=== PATIENT | female | born 1975 | race Two or more races ===

== ENCOUNTER 2024-12-25 07:36 | Emergency (ER) | payer OTHER ==
[~2024-12-25] VITALS: Ht 157.5 cm; Wt 113.8 kg
--- NOTE | 2024-12-25 07:49 | ED.PDOC ---
History of Present Illness HPI Comments 49-year-old female presents to the ER with prior surgical history of and the chief complaint of chest pain. Patient reports that she woke up this morning, going to the restroom when she started to have left-sided chest pain which is nonradiating, with weakness as well. Patient notes that she does have she stress at home. Denies chills, fever, N/V/D, SOB,. No other associated symptoms, modifiers, recent injuries or sick contacts present at this time. 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 History Family History Family History: Reviewed,noncontributory to illness, Unknown Social History Smoker: Non-Smoker Alcohol: Denies ETOH Use Drugs: Denies Drug Use Lives In: Home Constitutional: reports: weakness; denies: chills, diaphoresis, fatigue, fever, malaise, sweats, others EENTM: denies: blurred vision, double vision, ear bleeding, ear discharge, ear drainage, ear pain, ear ringing, eye pain, eye redness, hearing loss, mouth p ain, mouth swelling, nasal discharge, nose bleeding, nose congestion, nose pain, photophobia, tearing, throat pain, throat swelling, voice changes, others Respiratory: denies: cough, hemoptysis, orthopnea, SOB at rest, shortness of br eath, SOB with excertion, stridor, wheezing, others Cardiovascular: reports: chest pain; denies: dizzy spells, diaphoresis, Dyspnea on exertion, edema, irregular heart beat, left arm pain, lightheadedness, palpitations, PND, syncope, others Gastrointestinal: denies: abdomen distended, abdominal pain, blood streaked redd wels, constipated, diarrhea, dysphagia, difficulty swallowing, hematemesis, melena, nausea, poor appetite, poor fluid intake, rectal bleeding, rectal pain, vomiting, others Genitourinary: denies: abnormal vagina bleeding, burning, dyspareunia, dysuria, flank pain, frequency, hematuria, incontinence, pain, , vagina discharge, urgency, others Neurological: denies: dizziness, fainting, headache, left sided numbness, left sided weakness, numbness, paresthesia, pre-existing deficit, right sided numbness, right sided weakness, seizure, speech problems, tingling, tremors, weakness, others Musculoskeletal: denies: back pain, gout, joint pain, joint swelling, muscle pain, muscle stiffness, neck pain, others Integumetry: denies: bruises, change in color, change in hair/nails, dryness, laceration, lesions, lumps, rash, wounds, others Allergic/Immunocompromised: denies: Difficulty Healing, Frequent Infections, Hives, Itching, others Hematologic/Lymphatic: denies: anemia, blood clots, easy bleeding, easy bruis ing, swollen glands, others Endocrine: denies: excessive hunger, excessive sweating, excessive thirst, exc essive urination, flushing, intolerance to cold, intolerance to heat, unexplained weight gain, unexplained weight loss, others Psychiatric: denies: anxiety, bipolar disorder, depression, hopeless, panic disorder, schizophrenia, sleepless, suicidal, others All Other Systems: Reviewed and Negative Physical Exam General Appearance: Moderate Distress, Normal HEENT: Normal ENT Inspection, Pharynx Normal, TMs Normal Neck: Full Range of Motion, Non-Tender, Normal, Normal Inspection Respiratory: Chest Non-Tender, Lungs Clear, No Accessory Muscle Use, No Respiratory Distress, Normal Breath Sounds Cardiovascular: No Edema, No JVD, No Murmur, No Gallop, Normal Peripheral Pulses, Regular Rate/Rhythm Breast Exam: Deferred Gastrointestinal: No Organomegaly, Non Tender, No Pulsatile Mass, Normal Bowel Sounds, Soft Genitalia: Deferred Pelvic: Deferred Rectal: Deferred Extremities: No calf tenderness, Normal capillary refill, Normal inspection, Normal range of motion, Non-tender, No pedal edema Musculoskeletal : Apperance: Normal Neurologic: Alert, assistant superintendent II-XII nml as Tested, No Motor Deficits, Normal Affect, Normal Mood, No Sensory Deficits Cerebellar Function: Normal Reflexes: Normal Skin: Dry, Normal Color, Warm Peripheral Pulses: 3+ Radial (R), 3+ Radial (L) Lymphatic: No Adenopathy Was a procedure done? Was a procedure done?: No EKG EKG : Pulse Rate (adult): 77 [place]: Normal Cardiac Rhythm: NSR Block: None Hypertrophy: None ST: Normal Differential Dx Considerations may include: Anxiety Musculoskeletal pain X-Ray, Labs, Meds, VS Vital Signs Date Time Temp Pulse Resp B/P (MAP) Pulse Ox O2 Delivery O2 Flow Rate FiO2 12/25/24 08:52 70 12/25/24 07:53 97.5 72 16 140/74 (96) 98 97.5 12/25/24 07:53 72 12/25/24 07:49 77 12/25/24 07:42 77 12/25/24 07:41 97.5 72 16 140/74 (96) 98 97.5 Lab Test 12/25/24 08:49 12/25/24 07:50 Range/Units Troponin I High Sensitivity < 3 L < 3 L </=34 ng/L Patient alert. No sign of distress. Vitals stable. Answering questions. Cardiac marker within normal limits. EKG reviewed does not show any acute changes. Saturation pristine. Heart rate within normal limits. No leg swelling. No shortness a breath. Explained to the patient's age does not have risk factors for coronary artery disease. Possibly stress induced. Educated the patient on stress relief exercises breathing techniques. Was told to follow up with her primary care physician. Was told to come back if there is any problem. Time of 1ST Reevaluation: 08:15 Reevaluation 1ST: Unchanged Time of 2ND Reevaluation: 09:03 Reevaluation 2ND: Improved Patient Education/Counseling: Diagnosis, Treatment, Prognosis Family Education/Counseling: No Family Present Departure 1 Departure Time of Disposition: 09:04 Impression: Primary Impression: Anxiety Additional Impression: Musculoskeletal chest pain Disposition: 01 HOME / SELF CARE / HOMELESS Condition: Good Discharged With: Self Critical Care Note Critical Care Time?: No Stability Stability form required: No Heart Score Heart Score: Heart Score Response (Comments) Value History Slightly Suspicious 0 EKG Normal 0 Age 45-64 1 Risk Factors No known risk factors 0 Troponin Normal limit 0 Total 1 I personally scribed for ANNA CARLOS MD ([email or web address]) on 12/25/24 at 07:49. Electronically submitted by King Casiano ([email or web address]). ANNA CARLOS MD Dec 25, 2024 07:49
[2024-12-25 07:53] VITALS: PULSE 72; TEMP 97.5
--- NOTE | 2024-12-25 08:54 | ECG ---
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
[2024-12-25 10:49] VITALS: BP 141/68; PULSE 69; RESP 13; O2SAT 97
--- NOTE | 2024-12-27 12:56 | ECG ---
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
== END 2024-12-25 10:57 | disposition home or self-care (01) ==
LOC: ER 07:36
DX: F41.9 Anxiety disorder, unspecified (principal); R07.89 Other chest pain
CPT/HCPCS: 36415; 84484; 93005

== ENCOUNTER 2024-12-26 02:48 | Inpatient (IN) | payer OTHER ==
[~2024-12-26] VITALS: Ht 172.7 cm; Wt 116.9 kg
[2024-12-26 03:42] LABS: Basophils # (auto) 0 10 ^3/uL (0-0.2); Eosinophils # (auto) 0.1 10 ^3/uL (0-0.8); Hemoglobin 12.8 g/dL (12.2-16.2); Lymphocytes # (auto) 1.6 10 ^3/uL (0.4-5.4); Monocytes % (auto) 7.6 % (0.0-12.0); Nucleated Red Blood Cells % 0.1 %; Platelet Count (auto) 215 10^3/uL (140-450)
[2024-12-26 03:43] LABS: Chloride 105 mmol/L (98-107); Potassium 3.7 mmol/L (3.5-5.1); Sodium 139 mmol/L (136-145)
[2024-12-26 03:44] LABS: Anion Gap 6 (5-15); Basophils % (auto) 0.5 % (0.0-2.0); Carbon Dioxide 28 mmol/L (20-31); Eosinophils % (auto) 1.7 % (0.0-7.0); Hematocrit 38.3 % (36.0-46.0); Lymphocytes % (auto) 21.6 % (10.0-50.0); Mean Corpuscular Hemoglobin 27.1 pg (28.0-32.0); Mean Corpuscular Hgb Conc. 33.4 g/dL (32.0-36.0); Monocytes # (auto) 0.5 10 ^3/uL (0-1.3); Neutrophils % (auto) 68.6 % (37.0-80.0); Red Blood Cells 4.73 10^6/uL (4.0-5.20); Red Cell Distribution Width 14.1 % (11.8-14.3); White Blood Cell 7.3 10^3/uL (4.4-10.8)
[2024-12-26 03:45] LABS: Calcium 9.2 mg/dL (8.7-10.4)
[2024-12-26 03:49] LABS: BUN/Creatinine Ratio 12.9 (10.0-20.0); Glucose 104 mg/dL (74-106)
--- NOTE | 2024-12-26 04:01 | DVH ---
CHEST RADIOGRAPH Indication: dizziness Technique: Single frontal view of the chest was obtained COMPARISON: None FINDINGS: Lines and Tubes: None Lungs: Clear Pleura: No effusion. No pneumothorax. Cardiomediastinal contours: Unremarkable Bones: Unremarkable IMPRESSION: 1. No acute disease.
--- NOTE | 2024-12-26 04:16 | ED.PDOC ---
History of Present Illness HPI Comments 49 y/o obese F is BIBA for unprovoked and sudden onset of room-spinning dizziness, with nausea, 1 hour prior to arrival, this morning. Patent endorses on symptoms beginning after standing up and turning her head. Vitals were stable and within normal limits. She was given 4mg Zofran ODT, with minimal improvement to nausea symptoms. Patient denies any recent injuries, sick contact, or travel. She denies any chest pain, shortness of breath, fever, chills, vision or speech changes, or further associated symptoms. 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 History Family History Family History: Reviewed,noncontributory to illness, Unknown Social History Smoker: Non-Smoker Alcohol: Denies ETOH Use Drugs: Denies Drug Use Lives In: Home All Other Systems: Reviewed and Negative (Comprehensive systems review obtained and negative except for what is stated in the HPI.) Physical Exam General Appearance: No Apparent Distress, Obese HEENT: Normal ENT Inspection, Pharynx Normal, TMs Normal Neck: Full Range of Motion, Non-Tender, Normal, Normal Inspection Respiratory: Chest Non-Tender, Lungs Clear, No Accessory Muscle Use, No Respiratory Distress, Normal Breath Sounds Cardiovascular: No Edema, No JVD, No Murmur, No Gallop, Normal Peripheral Pulses, Regular Rate/Rhythm Breast Exam: Deferred Gastrointestinal: No Organomegaly, Non Tender, No Pulsatile Mass, Normal Bowel Sounds, Soft Genitalia: Deferred Pelvic: Deferred Rectal: Deferred Extremities: No calf tenderness, Normal capillary refill, Normal inspection, Normal range of motion, Non-tender, No pedal edema Musculoskeletal : Apperance: Normal Neurologic: Alert, field control inspector II-XII nml as Tested, No Motor Deficits, Normal Affect, Normal Mood, No Sensory Deficits Cerebellar Function: Normal Reflexes: Normal Skin: Dry, Normal Color, Warm Lymphatic: No Adenopathy Was a procedure done? Was a procedure done?: No Differential Dx Considerations may include: vertigo, electrolyte imbalance, dehydration, UTI, among others X-Ray, Labs, Meds, VS Vital Signs Date Time Temp Pulse Resp B/P (MAP) Pulse Ox O2 Delivery O2 Flow Rate FiO2 12/26/24 02:57 98.6 79 16 136/85 (102) 99 98.6 Lab Test 12/26/24 03:25 Range/Units White Blood Count 7.3 4.4-10.8 10^3/uL Red Blood Count 4.73 4.0-5.20 10^6/uL Hemoglobin 12.8 12.2-16.2 g/dL Hematocrit 38.3 36.0-46.0 % Mean Corpuscular Volume 81.0 80.0-100.0 fL Mean Corpuscular Hemoglobin 27.1 L 28.0-32.0 pg Mean Corpuscular Hemoglobin Concent 33.4 32.0-36.0 g/dL Red Cell Distribution Width 14.1 11.8-14.3 % Platelet Count 215 140-450 10^3/uL Mean Platelet Volume 9.4 6.9-10.8 fL Neutrophils (%) (Auto) 68.6 37.0-80.0 % Lymphocytes (%) (Auto) 21.6 10.0-50.0 % Monocytes (%) (Auto) 7.6 0.0-12.0 % Eosinophils (%) (Auto) 1.7 0.0-7.0 % Basophils (%) (Auto) 0.5 0.0-2.0 % Neutrophils # (Auto) 5.0 1.6-8.6 10 ^3/uL Lymphocytes # (Auto) 1.6 0.4-5.4 10 ^3/uL Monocytes # (Auto) 0.5 0-1.3 10 ^3/uL Eosinophils # (Auto) 0.1 0-0.8 10 ^3/uL Basophils # (Auto) 0 0-0.2 10 ^3/uL Nucleated Red Blood Cells 0.1 % Sodium Level 139 136-145 mmol/L Potassium Level 3.7 3.5-5.1 mmol/L Chloride Level 105 98-107 mmol/L Carbon Dioxide Level 28 20-31 mmol/L Anion Gap 6 5-15 Blood Urea Nitrogen 9 9-23 mg/dL Creatinine 0.70 0.550-1.02 mg/dL Glomerular Filtration Rate Calc 107 >90 mL/min BUN/Creatinine Ratio 12.9 10.0-20.0 Serum Glucose 104 74-106 mg/dL Calcium Level 9.2 8.7-10.4 mg/dL Troponin I High Sensitivity < 3 L </=34 ng/L [place] [id number] Ph: [phone] DIAGNOSTIC IMAGING Diagnostic Imaging Report : [id number] Signed PATIENT: FRANCISCO GUIDRY ACCT: [id number] UNIT: [id number] : 1975 LOC: ER ROOM / BED: / AGE / SEX: 49 / F ADM STATUS: REG ER SERVICE 4 ORDERING PHYSICIAN: CELIA HENRIQUEZ MD PROCEDURE(s): CXRP - CHEST PORTABLE REASON: dizziness ORDER NUMBER(s): [id number], ACCESSION NUMBER(s): [id number] CHEST RADIOGRAPH Indication: dizziness Technique: Single frontal view of the chest was obtained COMPARISON: None FINDINGS: Lines and Tubes: None Lungs: Clear Pleura: No effusion. No pneumothorax. Cardiomediastinal contours: Unremarkable Bones: Unremarkable IMPRESSION: 1. No acute disease. ATED BY: BURNO AMADOR MD DICTATED DATE/TIME: 12/26/24358 SIGNED BY: BRUNO AMADOR MD SIGNED DATE/TIME: 12/26/24358 CC: Time of 1ST Reevaluation: 03:40 Reevaluation 1ST: Unchanged Patient Education/Counseling: Diagnosis, Treatment Family Education/Counseling: No Family Present Departure 1 Departure Time of Disposition: 04:32 (Patient with a severe dizziness. We will admit bárbara granado for further workup and expert consultation) Impression: Primary Impression: Dizziness Additional Impression: Projectile vomiting with nausea Disposition: ADMITTED INPATIENT Admit to: Med Surg Condition: Serious Critical Care Note Critical Care Time?: No Stability Stability form required: No Heart Score Heart Score: Heart Score Response (Comments) Value History N/A 0 EKG N/A 0 Age N/A 0 Risk Factors N/A 0 Troponin N/A 0 Total 0 I personally scribed for CELIA HENRIQUEZ MD ([email or web address]) on 12/26/24 at 04:15. Electronically submitted by Adrián Boston ([email or web address]). CELIA HENRIQUEZ MD Dec 26, 2024 04:15
--- NOTE | 2024-12-26 04:18 | DVH ---
EXAM: CT HEAD WITHOUT CONTRAST INDICATION: dizziness TECHNIQUE: CT of the head without intravenous contrast. Coronal and sagittal reformatted images are s ubmitted. Radiation Dose : 1. Head: CT Dose: CTDI volume is 55.82 mGy. Dose-length product is 894.89 mGy*cm The dose indicators for CT are the volume Computed Tomography (CT) Dose Index (CTDIvol) and the Dose Length Product (DLP), and are measured in units of mGy and mGy-cm, respectively. These indicators are not patient dose, but values generated from the CT scanner acquisition factors. The report includes radiation exposure data for exposures received during this examination. All CT scans at this medical facility are performed using dose modulation techniques as appropriate to a performed exam including the following: Automated exposure control was utilized; adjustment of the MA and/or KV according to patient size; and use of iterative reconstruction technique. COMPARISON: None FINDINGS: There is no evidence of acute intracranial hemorrhage, extra-axial collection, mass effect, midline s hift, herniation or hydrocephalus. The ventricles, sulci and cisterns are age appropriate. The herrera-white differentiation is intact. The visualized paranasal sinuses and mastoid air cells are clear. No depressed calvarial fracture. The surrounding soft tissues are unremarkable. IMPRESSION: 1. No evidence no evidence of acute intracranial abnormality.
[2024-12-26 04:21] LABS: Blood Urea Nitrogen 9 mg/dL (9-23)
--- NOTE | 2024-12-26 06:30 | ECG ---
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
[2024-12-26 07:21] LABS: Urine Bacteria None Seen /hpf (None Seen)
[2024-12-26 07:31] LABS: Urine Blood Negative /uL (Negative); Urine Clarity Clear (Clear); Urine Color Colorless (Yellow); Urine Protein, UAD Negative (Negative); Urine Specific Gravity 1.007 (1.001-1.035); Urine Squamous Epithelial Cell FEW /hpf (<5); Urine Urobilinogen Normal (Negative); Urine WBC 1 /HPF (0-5); Urine pH 6.5 (5.0-9.0)
[2024-12-26] MEDS ORDERED: DOCUSATE SOD 100 MG CAP PO PRN (08:15)
[2024-12-26] MEDS: SODIUM CHLORIDE 0.9% 1,000 ML IV ONE ×3 (08:15→10:16)
--- NOTE | 2024-12-26 08:20 | DVHHP2 ---
History of Present Illness Reason for Visit: Dizziness History of Present Illness Lubna Cueto is a 49-year-old female with no significant past medical history, who came to the hospital due to dizziness. Patient states she came to the ER yesterday due to palpitations. She was evaluated and sent home. She was still not feeling well and went to bed early yesterday. She states she did not eat or drink much yesterday. She woke up early this morning and the room was spinning. She tried closing her eyes, and letting it pass, but it did not improve. She woke up her and had him bring her to the hospital. Past Surgical History: (x 1) Smoke: No ALCOHOL: none Drugs: None Lives: with Family Domestic Violence: Neg Review of Systems Constitutional: No: Fever, Chills, Sweats, Weakness, Malaise, Other Eyes: No: Pain, Vision change, Conjunctivae inflammation, Eyelid inflammation, Other, Redness ENT: No: Ear pain, Ear discharge, Nose pain, Nose discharge, Nose congestion, Mouth pain, Mouth swelling, Throat pain, Throat swelling, Other Respiratory: No: Cough, Dry, Shortness of breath, SOB with excertion, Wheezing, Hemoptysis, Pleuritic Pain, Sputum, Wheezing, Other Cardiovascular: Palpitations; No: Chest Pain, Orthopnea, Paroxysmal Noc. Dyspnea, Edema, Lt Headedness, Other Gastrointestinal: No: Nausea, Vomiting, Abdominal Pain, Diarrhea, Constipation, Melena, Hematochezia, Other Genitourinary: No Dysuria, No Frequency, No Incontinence, No Hematuria, No Retention, No Other Musculoskeletal: No: other, neck pain, shoulder pain, arm pain, back pain, hand pain, leg pain, foot pain Skin: No: Rash, Lesions, Jaundice, Bruising, Other Neurological: Other (Dizziness); No: Weakness, Numbness, Incoordination, Change in speech, Confusion, Seizures Allergies: Coded Allergies: NO KNOWN ALLERGIES (Unverified , 12/25/24) Medications Current Medications Medications Dose Ordered Sig/Joycelyn Route Start Time Stop Time Status Last Admin Dose Admin Acetaminophen/ Hydrocodone Bitart 1 tab Q4HP PRN PO 12/26/24 08:15 UNV Ondansetron HCl 4 mg Q4HP PRN IV 12/26/24 08:15 UNV Docusate Sodium 100 mg BIDPRN PRN PO 12/26/24 08:15 UNV Acetaminophen 650 mg Q6HP PRN PO 12/26/24 08:15 UNV Meclizine HCl 25 mg Q8HPRN PRN PO 12/26/24 08:15 UNV Exam Vital Signs Vital Signs Date Time Temp Pulse Resp B/P (MAP) Pulse Ox O2 Delivery O2 Flow Rate FiO2 12/26/24 08:14 97.9 70 16 133/80 (97) 96 97.9 12/26/24 06:07 Room Air General Appearance: Alert, Oriented X3, Cooperative, moderate distress HEENT: Atraumatic, PERRLA Respiratory: Clear to auscultation, Normal air movement Cardiovascular: Regular rate, Normal S1, Normal S2, No murmurs Abdominal: Normal bowel sounds, Soft, No tenderness, No hepatospenomegaly Extremities: No clubbing, No cyanosis, No edema, Normal pulses, No tenderness/swelling Skin: No rashes, No breakdown, No significant lesion Neuro: Normal gait, Normal speech, Normal tone, Other (weakness and dizziness) Psych/Mental Status: Mental status NL, Mood NL Labs/Xrays Labs Test 12/26/24 07:05 12/26/24 03:25 Range/Units Urine Color Colorless Yellow Urine Clarity Clear Clear Urine pH 6.5 5.0-9.0 Urine Specific [place] 1.007 1.001-1.035 Urine Protein Negative Negative Urine Ketones Negative Negative Urine Blood Negative Negative /uL Urine Nitrite Negative Negative Urine Bilirubin Negative Negative Urine Urobilinogen Normal Negative mg/dL Urine Leukocyte Esterase Negative Negative /uL Urine RBC <1 0 - 4 /hpf Urine Microscopic WBC 1 0-5 /HPF Urine Squamous Epithelial Cells Few <5 /hpf Urine Bacteria None seen None Seen /hpf Urine Glucose Normal Normal mg/dL White Blood Count 7.3 4.4-10.8 10^3/uL Red Blood Count 4.73 4.0-5.20 10^6/uL Hemoglobin 12.8 12.2-16.2 g/dL Hematocrit 38.3 36.0-46.0 % Mean Corpuscular Volume 81.0 80.0-100.0 fL Mean Corpuscular Hemoglobin 27.1 L 28.0-32.0 pg Mean Corpuscular Hemoglobin Concent 33.4 32.0-36.0 g/dL Red Cell Distribution Width 14.1 11.8-14.3 % Platelet Count 215 140-450 10^3/uL Mean Platelet Volume 9.4 6.9-10.8 fL Neutrophils (%) (Auto) 68.6 37.0-80.0 % Lymphocytes (%) (Auto) 21.6 10.0-50.0 % Monocytes (%) (Auto) 7.6 0.0-12.0 % Eosinophils (%) (Auto) 1.7 0.0-7.0 % Basophils (%) (Auto) 0.5 0.0-2.0 % Neutrophils # (Auto) 5.0 1.6-8.6 10 ^3/uL Lymphocytes # (Auto) 1.6 0.4-5.4 10 ^3/uL Monocytes # (Auto) 0.5 0-1.3 10 ^3/uL Eosinophils # (Auto) 0.1 0-0.8 10 ^3/uL Basophils # (Auto) 0 0-0.2 10 ^3/uL Nucleated Red Blood Cells 0.1 % Sodium Level 139 136-145 mmol/L Potassium Level 3.7 3.5-5.1 mmol/L Chloride Level 105 98-107 mmol/L Carbon Dioxide Level 28 20-31 mmol/L Anion Gap 6 5-15 Blood Urea Nitrogen 9 9-23 mg/dL Creatinine 0.70 0.550-1.02 mg/dL Glomerular Filtration Rate Calc 107 >90 mL/min BUN/Creatinine Ratio 12.9 10.0-20.0 Serum Glucose 104 74-106 mg/dL Calcium Level 9.2 8.7-10.4 mg/dL Troponin I High Sensitivity < 3 L </=34 ng/L EXAM: CT HEAD WITHOUT CONTRAST FINDINGS: There is no evidence of acute intracranial hemorrhage, extra-axial collection, m ass effect, midline shift, herniation or hydrocephalus. The ventricles, sulci and cisterns are age appropriate. The herrera-white differentiation is intact. The visualized paranasal sinuses and mastoid air cells are clear. No depressed calvarial fracture. The surrounding soft tissues are unremarkable. IMPRESSION: 1. No evidence no evidence of acute intracranial abnormality. CHEST RADIOGRAPH FINDINGS: Lines and Tubes: None Lungs: Clear Pleura: No effusion. No pneumothorax. Cardiomediastinal contours: Unremarkable Bones: Unremarkable IMPRESSION: 1. No acute disease. Assessment/Plan Assessment/Plan Assessment: Autonomic dysfunction, Dehydration, Palpitations, Possible vertigo, Plan: Admit to Med-Surg, IV hydration, Meclizine, Neuro checks, Plan discussed with: Patient, Spouse My Orders Orders - KAT LITTLE Procedure Category Date Status Time Admit ADMIT 12/26/24 Transmitted 08:13 Code Status CODE 12/26/24 Transmitted 08:13 Hydrocodone-Acet PHA 12/26/24 Logged 5/325mg Tab ([place] 08:15 Ondansetron Hcl PHA 12/26/24 Logged (Zofran) 08:15 Docusate Sodium PHA 12/26/24 Logged Capsule ([place] 08:15 Complete Blood Count LAB 12/27/24 Verified 04:00 Comprehensive LAB 12/27/24 Verified Metabolic Panel 04:00 Condition: Serious SHELLI 12/26/24 In Process 08:13 Acetaminophen Tablet PHA 12/26/24 Logged (Tylenol Tablet) 08:15 Meclizine Tablet PHA 12/26/24 Logged (Antivert Tablet) 08:15 Sodium Chloride 0.9% PHA 12/26/24 Logged 08:15 Sodium Chloride 0.9% PHA 12/26/24 Logged 08:15 Regular Diet DIET 12/26/24 Transmitted Breakfast Date of Service: Dec 26, 2024 Billing Provider: KAT LITTLE Common Visit Codes: [id number] INP/OBS CARE (MOD) KAT LITTLE Dec 26, 2024 08:19
[2024-12-26] MEDS: ONDANSETRON HCL 4 MG/2 ML VIAL IV ONE (10:14)
[2024-12-26] MEDS: MECLIZINE HCL 25 MG TAB PO ONE (10:15)
--- NOTE | 2024-12-26 12:44 | DVHPN2 ---
Subjective Patient continues to have dizziness. Patient is in wheelchair in avoiding movements. Small movements are causing nausea and p.o. intolerance. Reviewed: H&P Changes from previous H/P or p: No Changes General: Per HPI Objective Vitals Vital Signs Date Time Temp Pulse Resp B/P (MAP) Pulse Ox O2 Delivery O2 Flow Rate FiO2 12/26/24 12:37 Room Air* 0 21 12/26/24 12:34 98.0 78 16 147/86 (106) 98 98.0 Exam GEN: Healthy appearing, well-developed, NAD. HEENT: NC/AT; MMM. CV: RRR, no m/r/g. LUNGS: CTAB, no w/r/c. ABD: Soft, NT/ND, NBS, no masses or organomegaly. EXT: skin Warm, well perfused. no rashes. No clubbing, cyanosis, or edema. NEURO: Ambulating with no limitations. No focal deficits. No nystagmus found, hearing intact cranial nerves 2-12 intact. Medications Current Medications Medications Dose Ordered Sig/Joycelyn Route Start Time Stop Time Status Last Admin Dose Admin Acetaminophen/ Hydrocodone Bitart 1 tab Q4HP PRN PO 12/26/24 08:15 Ondansetron HCl 4 mg Q4HP PRN IV 12/26/24 08:15 Docusate Sodium 100 mg BIDPRN PRN PO 12/26/24 08:15 Acetaminophen 650 mg Q6HP PRN PO 12/26/24 08:15 Meclizine HCl 25 mg Q8HPRN PRN PO 12/26/24 08:15 Laboratory Results Laboratory Tests 12/26/24 03:25 Chemistry Test 12/26/24 03:25 Calcium Level 9.2 mg/dL (8.7-10.4) Urinalysis Test 12/26/24 07:05 Urine Color Colorless (Yellow) Urine Clarity Clear (Clear) Urine pH 6.5 (5.0-9.0) Urine Specific [place] 1.007 (1.001-1.035) Urine Protein Negative (Negative) Urine Ketones Negative (Negative) Urine Blood Negative /uL (Negative) Urine Nitrite Negative (Negative) Urine Bilirubin Negative (Negative) Urine Urobilinogen Normal mg/dL (Negative) Urine Leukocyte Esterase Negative /uL (Negative) Urine RBC <1 /hpf (0 - 4) Urine Microscopic WBC 1 /HPF (0-5) Urine Squamous Epithelial Cells Few /hpf (<5) Urine Bacteria None seen /hpf (None Seen) Urine Glucose Normal mg/dL (Normal) Labs and/or images reviewed: Labs reviewed by me, Image(s) reviewed by me Assessment/Plan Assessment/Plan 12/26 49-year-old female, no past medical history, coming with nausea vomiting dizziness. Possible gastroenteritis, still minimally tolerating p.o.. We will have a test [place]-Hallpike as soon as patient gets a bed. No abdominal pain or tenderness. Patient is intravascular volume depleted Intractable nausea and vomiting Intractable dizziness palpitations rule-out arrhythmia Gastroenteritis, patient's etiology likely stroke, rule out - continue IV fluids - CT head normal. no acute findings. - iv antibiotics - for possible GE - Continue meclizine p.r.n. - antiemetics - zofran - diet CLD - neurochecks - vaibhav hallpike test. diet clear liquid diet DVT prophylaxis-Lovenox score, ambulating GI prophylaxis tolerating diet, altered minimally Tele start Full code Plan discussed with: Patient Date of Service: Dec 26, 2024 Billing Provider: EKTA BLUE MD Common Visit Codes: [id number] INP/OBS CARE(HIGH) EKTA BLUE MD Dec 26, 2024 12:44
[2024-12-26] MEDS: ACETAMINOPHEN 325 MG TAB PO PRN (14:24)
[2024-12-26] MEDS: MECLIZINE HCL 25 MG TAB PO PRN (14:24)
[2024-12-26] MEDS: ONDANSETRON HCL 4 MG/2 ML VIAL IV PRN (14:24)
[2024-12-26] MEDS: ceFAZolin 1GM/50ML 50 ML IV SCH (18:00)
[2024-12-26 20:30] VITALS: PULSE 69; RESP 15; O2SAT 97
[2024-12-26 20:50] VITALS: BP 121/68; PULSE 78; RESP 17; TEMP 97.7; O2SAT 97
[2024-12-26 21:15] VITALS: PULSE 78; RESP 17; O2SAT 97
[2024-12-27] VITALS (13 sets, daily range): BP systolic 101–131; BP diastolic 63–88; PULSE 67–155; RESP 17–19; TEMP 97.2–98.1; O2SAT 92–97
[2024-12-27] MEDS: MECLIZINE HCL 25 MG TAB PO PRN (03:06)
[2024-12-27 05:56] LABS: Basophils # (auto) 0 10 ^3/uL (0-0.2); Basophils % (auto) 0.6 % (0.0-2.0); Eosinophils # (auto) 0.1 10 ^3/uL (0-0.8); Eosinophils % (auto) 2.1 % (0.0-7.0); Hematocrit 35.5 % (36.0-46.0); Hemoglobin 11.9 g/dL (12.2-16.2); Lymphocytes # (auto) 1.6 10 ^3/uL (0.4-5.4); Lymphocytes % (auto) 30.9 % (10.0-50.0); Mean Corpuscular Hemoglobin 27.4 pg (28.0-32.0); Mean Corpuscular Hgb Conc. 33.5 g/dL (32.0-36.0); Mean Corpuscular Volume 81.7 fL (80.0-100.0); Monocytes # (auto) 0.5 10 ^3/uL (0-1.3); Monocytes % (auto) 8.8 % (0.0-12.0); Neutrophils % (auto) 57.6 % (37.0-80.0); Nucleated Red Blood Cells % 0.1 %; Platelet Count (auto) 205 10^3/uL (140-450); Red Blood Cells 4.35 10^6/uL (4.0-5.20); Red Cell Distribution Width 14.3 % (11.8-14.3); White Blood Cell 5.2 10^3/uL (4.4-10.8)
[2024-12-27 06:15] LABS: Alanine Aminotransferase 18 U/L (7-40); Alkaline Phosphatase 86 U/L (46-116); Anion Gap 9 (5-15); BUN/Creatinine Ratio 15.5 (10.0-20.0); Blood Urea Nitrogen 11 mg/dL (9-23); Calcium 9.1 mg/dL (8.7-10.4); Carbon Dioxide 25 mmol/L (20-31); Glucose 97 mg/dL (74-106); Potassium 3.9 mmol/L (3.5-5.1); Sodium 141 mmol/L (136-145); Total Protein 7.2 g/dL (5.7-8.2)
[2024-12-27 06:16] LABS: Aspartate Aminotransferase 17 U/L (13-40)
[2024-12-27 06:19] LABS: Bilirubin, Total 0.3 mg/dL (0.2-1.0); Chloride 107 mmol/L (98-107)
[2024-12-27] MEDS: METOPROLOL SUCCINATE XL 50 MG TAB PO ONE (12:52)
[2024-12-27] MEDS: LACTATED RINGER'S 1,000 ML IV SCH (14:00)
[2024-12-27] MEDS ORDERED: ENOXAPARIN SOD 120 MG/0.8 ML SYRINGE SC SCH (14:08)
--- NOTE | 2024-12-27 14:32 | DVHPN2 ---
Subjective Patient continues to have dizziness. Patient is inbed in avoiding movements. Small movements are causing nausea and p.o. intolerance. Reviewed: H&P Changes from previous H/P or p: No Changes General: Per HPI Eyes: No Pain, No Vision change, No Conjunctivae inflammation, No Eyelid inflammation, No Other, No Redness ENT: No Ear pain, No Ear discharge, No Nose pain, No Nose discharge, No Nose congestion, No Mouth pain, No Mouth swelling, No Throat pain, No Throat swelling, No Other Cardiovascular: No Chest Pain; Palpitations; No Orthopnea, No Paroxysmal Noc. Dyspnea, No Edema, No Lt Headedness, No Other Respiratory: No Cough, No Dry, No Shortness of breath, No SOB with excertion, No Wheezing, No Hemoptysis, No Pleuritic Pain, No Sputum, No Other Gastrointestinal: No Nausea, No Vomiting, No Abdominal Pain, No Diarrhea, No Constipation, No Melena, No Hematochezia, No Other Genitourinary: No Dysuria, No Frequency, No Incontinence, No Hematuria, No Retention, No Other Musculoskeletal: No other, No neck pain, No shoulder pain, No arm pain, No back pain, No hand pain, No leg pain, No foot pain Skin: No Rash, No Lesions, No Jaundice, No Bruising, No Other Objective Vitals Vital Signs Date Time Temp Pulse Resp B/P (MAP) Pulse Ox O2 Delivery O2 Flow Rate FiO2 12/27/24 12:52 80 118/71 12/27/24 08:49 97.4 19 92 97.4 12/27/24 08:00 Room Air* 0 21 Intake/Output Intake and Output 12/27/24 07:00 Intake Total 1018 ml Balance 1018 ml Intake Oral 1018 ml # Voids 3 # Bowel Movements 1 Exam GEN: Healthy appearing, well-developed, NAD. HEENT: NC/AT; MMM. CV: Irregularly irregular , no murmurs, normal rate LUNGS: CTAB, no w/r/c. ABD: Soft, NT/ND, NBS, no masses or organomegaly. EXT: skin Warm, well perfused. no rashes. No clubbing, cyanosis, or edema. NEURO: Ambulating with no limitations. No focal deficits. No nystagmus found, hearing intact cranial nerves 2-12 intact. Azeb-Hallpike positive on the right Medications Current Medications Medications Dose Ordered Sig/Joycelyn Route Start Time Stop Time Status Last Admin Dose Admin Acetaminophen/ Hydrocodone Bitart 1 tab Q4HP PRN PO 12/26/24 08:15 Ondansetron HCl 4 mg Q4HP PRN IV 12/26/24 08:15 12/26/24 14:24 4 MG Docusate Sodium 100 mg BIDPRN PRN PO 12/26/24 08:15 Acetaminophen 650 mg Q6HP PRN PO 12/26/24 08:15 12/26/24 14:24 650 MG Meclizine HCl 25 mg Q6HPRN PRN PO 12/26/24 14:15 12/27/24 09:09 25 MG Cefazolin Sodium 50 ml @ 100 mls/hr Q8H IV 12/26/24 18:00 Metoprolol Succinate 25 mg DAILY PO 12/28/24 10:00 Enoxaparin Sodium 120 mg Q12HR SC 12/27/24 14:08 Lactated Ringer's 1,000 ml @ 75 mls/hr [id number] IV 12/27/24 13:45 12/28/24 13:44 Laboratory Results Laboratory Tests 12/27/24 05:05 Chemistry Test 12/27/24 05:05 Albumin 4.0 g/dL (3.2-4.8) Calcium Level 9.1 mg/dL (8.7-10.4) Total Protein 7.2 g/dL (5.7-8.2) LFT Test 12/27/24 05:05 Alanine Aminotransferase (ALT) 18 U/L (7-40) Alkaline Phosphatase 86 U/L (46-116) Aspartate Amino Transferase (AST) 17 U/L (13-40) Total Bilirubin 0.3 mg/dL (0.2-1.0) Urinalysis Test 12/26/24 07:05 Urine Color Colorless (Yellow) Urine Clarity Clear (Clear) Urine pH 6.5 (5.0-9.0) Urine Specific [place] 1.007 (1.001-1.035) Urine Protein Negative (Negative) Urine Ketones Negative (Negative) Urine Blood Negative /uL (Negative) Urine Nitrite Negative (Negative) Urine Bilirubin Negative (Negative) Urine Urobilinogen Normal mg/dL (Negative) Urine Leukocyte Esterase Negative /uL (Negative) Urine RBC <1 /hpf (0 - 4) Urine Microscopic WBC 1 /HPF (0-5) Urine Squamous Epithelial Cells Few /hpf (<5) Urine Bacteria None seen /hpf (None Seen) Urine Glucose Normal mg/dL (Normal) Labs and/or images reviewed: Labs reviewed by me, Image(s) reviewed by me Assessment/Plan Assessment/Plan 12/26 49-year-old female, no past medical history, coming with nausea vomiting dizziness. Possible gastroenteritis, still minimally tolerating p.o.. We will have a test Azeb-Hallpike as soon as patient gets a bed. No abdominal pain or tenderness. Patient is intravascular volume depleted 12/27- today noting [place]-Hallpike positive on the right. Patient has BPPV. She was having palpitations yesterday and was put on tele. Today we find that she is on proximal AFib. We will get workup for proximal AFib, start rate control, start anticoagulation. CHADS-VASc is 1. We will get cardiology eval. May not need anticoagulation. AFib, paroxysmal, RVR palpitations, due to above BPPV Intractable nausea and vomiting due to above Intractable dizziness due to above Gastroenteritis, infectious etiology, likely stroke, ruled out - continue IV fluids - CT head normal. no acute findings. - iv antibiotics - for possible GE - Continue meclizine p.r.n. - antiemetics - zofran - diet regular - neurochecks - azeb hallpike test. Positive on right - TSH, echo, Cardiology consult, workup for AFib. - metoprolol XL 25mg and full dose lovenox Diet regular DVT prophylaxis- full dose lovenox GI prophylaxis tolerating diet, altered minimally Tele start Full code Plan discussed with: Patient My Orders Orders - EKTA BLUE MD Procedure Category Date Status Time Cefazolin 1gm/50ml PHA 12/26/24 In Process (Ancef) 18:00 Transfer Orders XFER 12/26/24 Transmitted 15:09 Metoprolol Xl PHA 12/28/24 In Process Succinate (Toprol Xl) 10:00 Thyroid Stimulating LAB 12/27/24 Logged Hormone 13:34 Drug Screen LAB 12/27/24 Logged 13:34 Free T4 (Free LAB 12/27/24 Logged Thyroxine) 13:34 Lactated Ringer's PHA 12/27/24 In Process 13:45 Echo 2d Mode Cardiac US 12/27/24 Logged DOP 13:34 * Cardiology Consult CONS 12/27/24 Transmitted 13:54 Enoxaparin Sodium PHA 12/27/24 In Process (Lovenox) 14:08 Date of Service: Dec 27, 2024 Billing Provider: EKTA BLUE MD Common Visit Codes: [id number] INP/OBS CARE(HIGH) EKTA BLUE MD Dec 27, 2024 14:32
--- NOTE | 2024-12-27 15:21 | DVHCONRES ---
Date Seen: Dec 27, 2024 Resident Creating Document: BERNIE BROTHERS RESIDENT Referring Physician Dr. Corona Reason for Consultation New AFib, paroxysmal History of Present Illness Patient is a 49-year-old female with no past medical history who comes in due to vertigo. According to the patient, on 12/25/2024 she came to the ER with chief complaint of palpitations and feeling jittery, EKG and workup was performed and patient was sent home and told she has anxiety. Per patient, she woke up in the early hours of 12/26/2024 feeling like the room was spinning, spinning worsened on slight head movement. Patient denies having similar symptoms in the past. On review of systems patient is complaining of nausea and palpitations. Telemetry strips were reviewed from 03/24 3:00 a.m. and 8:43 a.m. on 12/27/2024 and patient was noted to have PACs but no atrial fibrillation. At the time of me speaking with the patient, patient noted she was feeling "fluttering" again and a 12 lead EKG was performed that showed multiple atrial premature complexes, but positive P wave and no atrial fibrillation. Past Medical History Denies Past Surgical History section Family History: Patient reports no known family medical history. 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 Allergies: Coded Allergies: NO KNOWN ALLERGIES (Unverified , 12/25/24) Home Meds No Active Prescriptions or Reported Meds Current Medications Current Medications Medications (Trade) Dose Ordered Sig/Joycelyn Route PRN Reason Start Time Stop Time Status Last Admin Cefazolin Sodium 50 ml @ 100 mls/hr Q8H IV 12/26/24 18:00 Metoprolol Succinate (Toprol Xl) 25 mg DAILY PO 12/28/24 10:00 Enoxaparin Sodium (Lovenox) 120 mg Q12HR SC 12/27/24 14:08 Lactated Ringer's 1,000 ml @ 75 mls/hr [id number] IV 12/27/24 13:45 12/28/24 13:44 Review of Systems Patient seen and examined at bedside. Patient is alert and oriented to time, place person and responding to all questions. Eyes: No Pain, No Vision change, No Conjunctivae inflammation, No Eyelid inflammation, No Other, No Redness ENT: No Ear pain, No Ear discharge, No Nose pain, No Nose discharge, No Nose congestion, No Mouth pain, No Mouth swelling, No Throat pain, No Throat swelling, No Other Cardiovascular: No Chest Pain, Palpitations, No Orthopnea, No Paroxysmal No Dyspnea, No Edema, No Lt Headedness, No Other Respiratory: No Cough, No Dry, No Shortness of breath, No SOB with exertion, No Wheezing, No Hemoptysis, No Pleuritic Pain, No Sputum, No Other Gastrointestinal: Nausea, No Vomiting, No Abdominal Pain, No Diarrhea, No Constipation, No Melena, No Hematochezia, No Other Genitourinary: No Dysuria, No Frequency, No Incontinence, No Hematuria, No Retention, No Other Musculoskeletal: No other, No neck pain, No shoulder pain, No arm pain, No back pain, No hand pain, No leg pain, No foot pain Skin: No Rash, No Lesions, No Jaundice, No Bruising, No Other Psych: Denies any anxiety or stress, however, noted to have a sad affect and teary due to cousins passing 2 months ago Vital Signs Vital Signs Date Time Temp Pulse Resp B/P (MAP) Pulse Ox O2 Delivery O2 Flow Rate FiO2 12/27/24 13:00 97.8 80 19 118/71 (87) 95 97.8 12/27/24 08:00 Room Air* 0 21 Physical Exam General Appearance: Cooperative. Well developed. Well nourished. NAD Head Exam: Normal inspection Neck Exam: Normal inspection. Non-tender. Normal alignment Pulmonary/Respiratory: Chest non-tender. Clear bilateral breath sounds, no crackles, no wheezing. Cardiovascular/Chest: Regular rate and rhythm. No murmurs. No JVD. Peripheral Pulses: 2+ Radial (R). 2+ Radial (L). 2+ Pedal (R). 2+ Pedal (L) Abdominal Exam: Normal bowel sounds. Soft. normal abdomen, no visible veins, Nontender. No hepatospenomegaly. No masses Ankle Exam: 2+ ankle edema Lower extremities: Negative lower extremity edema Neuro/Mental Status: A&O x4. Coherent. Thoughts/Psych: Normal thought pattern. Appropriate mood and affect. Good judgement and insight Skin Exam: Normal inspection. Normal color. Warm. Dry Labs/Diagnostic Data Labs Test 12/27/24 05:05 12/26/24 07:05 12/26/24 03:25 Range/Units White Blood Count 5.2 # 4.4-10.8 10^3/uL Red Blood Count 4.35 4.0-5.20 10^6/uL Hemoglobin 11.9 L 12.2-16.2 g/dL Hematocrit 35.5 L 36.0-46.0 % Mean Corpuscular Volume 81.7 80.0-100.0 fL Mean Corpuscular Hemoglobin 27.4 L 28.0-32.0 pg Mean Corpuscular Hemoglobin Concent 33.5 32.0-36.0 g/dL Red Cell Distribution Width 14.3 11.8-14.3 % Platelet Count 205 140-450 10^3/uL Mean Platelet Volume 9.5 6.9-10.8 fL Neutrophils (%) (Auto) 57.6 37.0-80.0 % Lymphocytes (%) (Auto) 30.9 10.0-50.0 % Monocytes (%) (Auto) 8.8 0.0-12.0 % Eosinophils (%) (Auto) 2.1 0.0-7.0 % Basophils (%) (Auto) 0.6 0.0-2.0 % Neutrophils # (Auto) 3.0 1.6-8.6 10 ^3/uL Lymphocytes # (Auto) 1.6 0.4-5.4 10 ^3/uL Monocytes # (Auto) 0.5 0-1.3 10 ^3/uL Eosinophils # (Auto) 0.1 0-0.8 10 ^3/uL Basophils # (Auto) 0 0-0.2 10 ^3/uL Nucleated Red Blood Cells 0.1 % Sodium Level 141 136-145 mmol/L Potassium Level 3.9 3.5-5.1 mmol/L Chloride Level 107 98-107 mmol/L Carbon Dioxide Level 25 20-31 mmol/L Anion Gap 9 5-15 Blood Urea Nitrogen 11 9-23 mg/dL Creatinine 0.71 0.550-1.02 mg/dL Glomerular Filtration Rate Calc 105 >90 mL/min BUN/Creatinine Ratio 15.5 10.0-20.0 Serum Glucose 97 74-106 mg/dL Calcium Level 9.1 8.7-10.4 mg/dL Total Bilirubin 0.3 0.2-1.0 mg/dL Aspartate Amino Transferase (AST) 17 13-40 U/L Alanine Aminotransferase (ALT) 18 7-40 U/L Alkaline Phosphatase 86 46-116 U/L Total Protein 7.2 5.7-8.2 g/dL Albumin 4.0 3.2-4.8 g/dL Urine Color Colorless Yellow Urine Clarity Clear Clear Urine pH 6.5 5.0-9.0 Urine Specific [place] 1.007 1.001-1.035 Urine Protein Negative Negative Urine Ketones Negative Negative Urine Blood Negative Negative /uL Urine Nitrite Negative Negative Urine Bilirubin Negative Negative Urine Urobilinogen Normal Negative mg/dL Urine Leukocyte Esterase Negative Negative /uL Urine RBC <1 0 - 4 /hpf Urine Microscopic WBC 1 0-5 /HPF Urine Squamous Epithelial Cells Few <5 /hpf Urine Bacteria None seen None Seen /hpf Urine Glucose Normal Normal mg/dL Troponin I High Sensitivity < 3 L </=34 ng/L Assessment Multiple premature atrial complexes Vertigo possibly BPPV Probable complicated grief Plan/Recommendation Pending echocardiogram, TSH, UDS, serum magnesium Magnesium rider IV once Continue beta-asa Stopped therapeutic Lovenox Rest of the management as per hospitalist Thank you so much for the opportunity to consult on your patient. In case of any questions or concerns please feel free to reach out. Plan discussed with Dr. Reddy, patient and patient's boyfriend at bedside Plan discussed with: Patient, Other (Boyfriend at bedside, RN) Visit Coding Cardiology RES Date of Service: Dec 27, 2024 Billing Provider: BERNIE BROTHERS RESIDENT Cardiology Common Codes: [id number] INP/OBS CARE (High) BERNIE BROTHERS Dec 27, 2024 15:21
[2024-12-27] MEDS: MAGNESIUM SULFATE 1GM/100ML 100 ML IV ONE (17:39)
--- NOTE | 2024-12-27 17:41 | DVHSR ---
APPROVED REPORT EXAM: LIMITED Two-dimensional and M-mode echocardiogram with Doppler and color Doppler. Blood Pressure: 118/71 mmHg INDICATION Atrial Fibrillation New Paroxysmal RISK FACTORS Obesity: Height: 5' 8", Weight: 253 DIMENSIONS LVDd4.5 (3.8-5.7cm)LA (2D)4.0 (1.9-4.0cm)Aortic Root3.3 (2.0-3.7cm) LVDs3.2 (2.5-4.0cm)LA (MM) (1.9-4.0cm)Aortic Cusp Exc1.7 (1.5-2.0cm) EF (%) 55.0 (55-70%)Rt. Atrium (1.9-4.0cm)Asc. Aorta cm IVSd1.0 (0.7-1.1cm)RV (D) (1.8-2.4cm) PWd1.1 (0.7-1.1cm) Mitral Valve MitralMitral Stenosis E wave1.20m/sMV Mean GR.mmHg A wave1.40m/sMV Peak GR.mmHg E/A ratio0.92D MVAcm2 Aortic Valve Aortic ValveAortic Stenosis V10.70m/Jayce Mean GR.4mmHg V21.40m/Jayce Peak GR.8mmHg LVOT Diameter2.2 (1.8-2.4cm)Doppler AVA1.90cm2 Pulmonic Valve V21.10m/s Other Information Quality : Technically LimitedRhythm : Atrial Fibrillation Technically limited study due to patient position. Conclusion Sinus rhythm. Left atrial enlargement. Mild aortic root enlargement. Mild dilation of the sinuses of Valsalva. Valves are normal. EF of 55% with normal RV function. Dopplers unremarkable. No pericardial effusion masses or vegetations.
[2024-12-27 21:26] LABS: Amphetamine Screen, Urine Neg (NEGATIVE); Barbiturate Scree,Urine Neg (NEGATIVE); Benzodiazephine Screen, Urine Neg (NEGATIVE); Cannabinoid Screen, Urine Neg (NEGATIVE); Cocaine Screen, Urine Neg (NEGATIVE); Opiate Scree,Urine Neg (NEGATIVE); Phencyclidine Screen, Urine Neg (NEGATIVE)
[2024-12-27] MEDS: HYDROcodone-ACET 5/325MG TAB PO PRN (23:30)
[2024-12-28] VITALS (8 sets, daily range): BP systolic 113–136; BP diastolic 60–75; PULSE 62–76; RESP 17–20; TEMP 96.1–98.2; O2SAT 94–99
[2024-12-28] MEDS: METOPROLOL SUCCINATE XL 50 MG TAB PO SCH (09:20)
[2024-12-28] MEDS: ENOXAPARIN SOD 40 MG/0.4 ML SYRINGE SC SCH (10:00)
--- NOTE | 2024-12-28 11:07 | ECG ---
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
--- NOTE | 2024-12-28 12:40 | DVHPNRES ---
Progress Note Date Seen: Dec 28, 2024 Resident Creating Document: BERNIE BROTHERS RESIDENT Medical Necessity Reason Pt with a Central, PICC or Fol: No Subjective Review of Systems Patient seen and examined at bedside. Patient is alert and oriented to time, place, person and responding to all questions. Patient was noted to have a brief episode of heart rate in the 170s, tele monitor was reviewed and patient was not noted to be in AFib at the time. An EKG was performed shortly afterwards, which showed normal sinus rhythm with a heart rate of 70. Objective vital signs Vital Sign Date Time Temp Pulse Resp B/P (MAP) Pulse Ox O2 Delivery O2 Flow Rate FiO2 12/28/24 12:26 96.6 63 19 136/75 (95) 95 96.6 12/28/24 08:00 Room Air* 0 21 Total Intake and Output 12/27/24 12/27/24 12/28/24 15:00 23:00 07:00 Intake Total 980 ml 475 ml Balance 980 ml 475 ml medications Current Medications Medications Dose Ordered Sig/Joycelyn Route Start Time Stop Time Status Last Admin Dose Admin Acetaminophen/ Hydrocodone Bitart 1 tab Q4HP PRN PO 12/26/24 08:15 12/27/24 23:30 1 TAB Ondansetron HCl 4 mg Q4HP PRN IV 12/26/24 08:15 12/26/24 14:24 4 MG Docusate Sodium 100 mg BIDPRN PRN PO 12/26/24 08:15 Acetaminophen 650 mg Q6HP PRN PO 12/26/24 08:15 12/26/24 14:24 650 MG Meclizine HCl 25 mg Q6HPRN PRN PO 12/26/24 14:15 12/28/24 04:20 25 MG Cefazolin Sodium 50 ml @ 100 mls/hr Q8H IV 12/26/24 18:00 12/28/24 09:21 100 MLS/HR Metoprolol Succinate 25 mg DAILY PO 12/28/24 10:00 12/28/24 09:20 25 MG Lactated Ringer's 1,000 ml @ 75 mls/hr [id number] IV 12/27/24 13:45 12/28/24 13:44 12/27/24 14:00 75 MLS/HR Enoxaparin Sodium 40 mg DAILY SC 12/28/24 10:00 12/28/24 10:00 40 MG Examination General Appearance: Cooperative. Well developed. Well nourished. NAD Head Exam: Normal inspection Neck Exam: Normal inspection. Non-tender. Normal alignment Pulmonary/Respiratory: Chest non-tender. Clear bilateral breath sounds, no crackles, no wheezing. Cardiovascular/Chest: Regular rate and rhythm. No murmurs. No JVD. Peripheral Pulses: 2+ Radial (R). 2+ Radial (L). 2+ Pedal (R). 2+ Pedal (L) Abdominal Exam: Normal bowel sounds. Soft. normal abdomen, no visible veins, Nontender. No hepatospenomegaly. No masses Ankle Exam: 2+ ankle edema Lower extremities: Negative lower extremity edema Neuro/Mental Status: A&O x4. Coherent. Thoughts/Psych: Normal thought pattern. Appropriate mood and affect. Good judgement and insight Skin Exam: Normal inspection. Normal color. Warm. Dry laboratory and microbiology Laboratory Tests 12/27/24 05:05 Test 12/27/24 05:05 Range/Units Serum Glucose 97 74-106 mg/dL Labs and/or images reviewed: Labs reviewed by me, Image(s) reviewed by me Problem List/Assessment/Plan Problem List/Assessment/Plan Multiple premature atrial complexes Vertigo possibly BPPV Probable complicated grief Plan/Recommendation Increase beta-asa dose Patient will need outpatient Holter monitoring and cardiology follow up Echocardiogram: Sinus rhythm. Left atrial enlargement. Mild aortic root enlargement. Mild dilation of the sinuses of Valsalva. Valves are normal. EF of 55% with normal RV function. Dopplers unremarkable. No pericardial effusion masses or vegetations. Magnesium rider IV once Stopped therapeutic Lovenox Rest of the management as per hospitalist Thank you so much for the opportunity to consult on your patient. Cardiology team will sign off. In case of any questions or concerns please feel free to reach out. Plan discussed with Dr. Bolaños, patient and patient's boyfriend at bedside Plan discussed with: Patient, Other (RN) My Orders My Orders Orders - BERNIE BROTHERS RESIDENT Procedure Category Date Status Time Electrocardigram EKG 12/27/24 Logged 15:31 Enoxaparin Sodium PHA 12/28/24 In Process (Lovenox) 10:00 Electrocardigram EKG 12/28/24 Logged 09:18 Visit Coding Cardiology RES Date of Service: Dec 28, 2024 Billing Provider: GURPREET BOLAÑOS MD Cardiology Common Codes: [id number] HOSP CARE(BERNIE Yao RESIDENT Dec 28, 2024 12:40
[2024-12-28] MEDS: METOPROLOL SUCCINATE XL 50 MG TAB PO ONE (15:36)
--- NOTE | 2024-12-28 16:46 | DVHPN2 ---
Subjective Patient continues to have dizziness. Patient is inbed in avoiding movements. Small movements are causing nausea and p.o. intolerance. Reviewed: H&P Changes from previous H/P or p: No Changes General: Per HPI Eyes: No Pain, No Vision change, No Conjunctivae inflammation, No Eyelid inflammation, No Other, No Redness ENT: No Ear pain, No Ear discharge, No Nose pain, No Nose discharge, No Nose congestion, No Mouth pain, No Mouth swelling, No Throat pain, No Throat swelling, No Other Cardiovascular: No Chest Pain; Palpitations; No Orthopnea, No Paroxysmal Noc. Dyspnea, No Edema, No Lt Headedness, No Other Respiratory: No Cough, No Dry, No Shortness of breath, No SOB with excertion, No Wheezing, No Hemoptysis, No Pleuritic Pain, No Sputum, No Other Gastrointestinal: No Nausea, No Vomiting, No Abdominal Pain, No Diarrhea, No Constipation, No Melena, No Hematochezia, No Other Genitourinary: No Dysuria, No Frequency, No Incontinence, No Hematuria, No Retention, No Other Musculoskeletal: No other, No neck pain, No shoulder pain, No arm pain, No back pain, No hand pain, No leg pain, No foot pain Skin: No Rash, No Lesions, No Jaundice, No Bruising, No Other Objective Vitals Vital Signs Date Time Temp Pulse Resp B/P (MAP) Pulse Ox O2 Delivery O2 Flow Rate FiO2 12/28/24 16:21 96.9 74 18 124/72 (89) 95 96.9 12/28/24 08:00 Room Air* 0 21 Intake/Output Intake and Output 12/28/24 07:00 Intake Total 1455 ml Balance 1455 ml Intake Oral 1405 ml IV Total 50 ml # Voids 7 # Bowel Movements 3 Exam GEN: Healthy appearing, well-developed, NAD. HEENT: NC/AT; MMM. CV: regular rhythm no murmurs, normal rate LUNGS: CTAB, no w/r/c. ABD: Soft, NT/ND, NBS, no masses or organomegaly. EXT: skin Warm, well perfused. no rashes. No clubbing, cyanosis, or edema. NEURO: Ambulating with no limitations. No focal deficits. No nystagmus found, hearing intact cranial nerves 2-12 intact. Vaibhav-Hallpike positive on the right Medications Current Medications Medications Dose Ordered Sig/Joycelyn Route Start Time Stop Time Status Last Admin Dose Admin Acetaminophen/ Hydrocodone Bitart 1 tab Q4HP PRN PO 12/26/24 08:15 12/27/24 23:30 1 TAB Ondansetron HCl 4 mg Q4HP PRN IV 12/26/24 08:15 12/26/24 14:24 4 MG Docusate Sodium 100 mg BIDPRN PRN PO 12/26/24 08:15 Acetaminophen 650 mg Q6HP PRN PO 12/26/24 08:15 12/26/24 14:24 650 MG Meclizine HCl 25 mg Q6HPRN PRN PO 12/26/24 14:15 12/28/24 14:11 25 MG Cefazolin Sodium 50 ml @ 100 mls/hr Q8H IV 12/26/24 18:00 12/28/24 09:21 100 MLS/HR Enoxaparin Sodium 40 mg DAILY SC 12/28/24 10:00 12/28/24 10:00 40 MG Metoprolol Succinate 50 mg DAILY PO 12/29/24 10:00 Laboratory Results Laboratory Tests 12/27/24 05:05 Urinalysis Test 12/26/24 07:05 Urine Color Colorless (Yellow) Urine Clarity Clear (Clear) Urine pH 6.5 (5.0-9.0) Urine Specific [place] 1.007 (1.001-1.035) Urine Protein Negative (Negative) Urine Ketones Negative (Negative) Urine Blood Negative /uL (Negative) Urine Nitrite Negative (Negative) Urine Bilirubin Negative (Negative) Urine Urobilinogen Normal mg/dL (Negative) Urine Leukocyte Esterase Negative /uL (Negative) Urine RBC <1 /hpf (0 - 4) Urine Microscopic WBC 1 /HPF (0-5) Urine Squamous Epithelial Cells Few /hpf (<5) Urine Bacteria None seen /hpf (None Seen) Urine Glucose Normal mg/dL (Normal) Labs and/or images reviewed: Labs reviewed by me, Image(s) reviewed by me Assessment/Plan Assessment/Plan 12/26 49-year-old female, no past medical history, coming with nausea vomiting dizziness. Possible gastroenteritis, still minimally tolerating p.o.. We will have a test Vaibhav-Hallpike as soon as patient gets a bed. No abdominal pain or tenderness. Patient is intravascular volume depleted 12/27- today noting [place]-Hallpike positive on the right. Patient has BPPV. She was having palpitations yesterday and was put on tele. Today we find that she is on proximal AFib. We will get workup for proximal AFib, start rate control, start anticoagulation. CHADS-VASc is 1. We will get cardiology eval. May not need anticoagulation. 12/28- starting metoprolol today, she continues to have palpitations associated with fast rhythm up to 150s. Abnormal rhythm is atrial tachycardia, cardiology has evaluated and no AFib has found on tele or EKG. No need for Lovenox, we will DC. But she continues having fast rhythms every 10 minutes. They are associated with eating and with ambulation. Echocardiogram has mild left atrial enlargement but no significant findings otherwise, TSH is within normal limits, UDS not resulted. Cardiology recommends outpatient Holter. We will increase metoprolol XL to 50 daily and monitor for improvement in symptoms, likely DC tomorrow and follow up with PCP and Cardiology. Continue Leslie maneuvers b.i.d.. I suspect anxiety has a part to play in the presentation as well. Paroxysmal atrial tachycardia palpitations, due to above BPPV Intractable nausea and vomiting due to above Intractable dizziness due to above Gastroenteritis, infectious etiology, likely stroke, ruled out - continue IV fluids - CT head normal. no acute findings. - iv antibiotics - for possible GE - Continue meclizine p.r.n. - antiemetics - zofran - diet regular - neurochecks - vaibhav hallpike test. Positive on right - TSH, echo, Cardiology consult, workup for AFib. - metoprolol XL 25mg and full dose lovenox Diet regular DVT prophylaxis- full dose lovenox GI prophylaxis tolerating diet, altered minimally Tele start Full code Plan discussed with: Patient My Orders Orders - EKTA BLUE MD Procedure Category Date Status Time Metoprolol Xl PHA 12/29/24 In Process Succinate (Toprol Xl) 10:00 Date of Service: Dec 28, 2024 Billing Provider: EKTA BLUE MD Common Visit Codes: [id number] INP/OBS CARE(HIGH) EKTA BLUE MD Dec 28, 2024 16:46
[2024-12-29] VITALS (9 sets, daily range): BP systolic 105–133; BP diastolic 59–74; PULSE 59–86; RESP 15–18; TEMP 98–98.5; O2SAT 90–98
[2024-12-29] MEDS: METOPROLOL SUCCINATE XL 50 MG TAB PO SCH (09:07)
--- NOTE | 2024-12-29 10:33 | ECG ---
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
[2024-12-29] MEDS: METOPROLOL SUCCINATE XL 50 MG TAB PO ONE ×2 (13:55→16:36)
[2024-12-29] MEDS ORDERED: METOPROLOL SUCCINATE XL 50 MG TAB PO ONE ×2 (15:00)
--- NOTE | 2024-12-29 15:15 | DVHPN2 ---
Subjective Patient continues to have dizziness. Patient is inbed in avoiding movements. Small movements are causing nausea and p.o. intolerance. Reviewed: H&P Changes from previous H/P or p: No Changes General: Per HPI Objective Vitals Vital Signs Date Time Temp Pulse Resp B/P (MAP) Pulse Ox O2 Delivery O2 Flow Rate FiO2 12/29/24 13:55 73 111/67 12/29/24 13:00 98.2 15 90 98.2 12/29/24 08:09 Room Air* 0 21 Intake/Output Intake and Output 12/29/24 07:00 Intake Total 1250 ml Balance 1250 ml Intake Oral 1100 ml IV Total 150 ml # Voids 5 Exam GEN: Healthy appearing, well-developed, NAD. HEENT: NC/AT; MMM. CV: regular rhythm no murmurs, normal rate LUNGS: CTAB, no w/r/c. ABD: Soft, NT/ND, NBS, no masses or organomegaly. EXT: skin Warm, well perfused. no rashes. No clubbing, cyanosis, or edema. NEURO: Ambulating with no limitations. No focal deficits. No nystagmus found, hearing intact cranial nerves 2-12 intact. [place]-Hallpike positive on the right Medications Current Medications Medications Dose Ordered Sig/Joycelyn Route Start Time Stop Time Status Last Admin Dose Admin Acetaminophen/ Hydrocodone Bitart 1 tab Q4HP PRN PO 12/26/24 08:15 12/27/24 23:30 1 TAB Ondansetron HCl 4 mg Q4HP PRN IV 12/26/24 08:15 12/26/24 14:24 4 MG Docusate Sodium 100 mg BIDPRN PRN PO 12/26/24 08:15 Acetaminophen 650 mg Q6HP PRN PO 12/26/24 08:15 12/26/24 14:24 650 MG Meclizine HCl 25 mg Q6HPRN PRN PO 12/26/24 14:15 12/28/24 14:11 25 MG Enoxaparin Sodium 40 mg DAILY SC 12/28/24 10:00 12/29/24 09:08 40 MG Metoprolol Succinate 50 mg BID PO 12/30/24 10:00 UNV Laboratory Results Laboratory Tests 12/27/24 05:05 Urinalysis Test 12/26/24 07:05 Urine Color Colorless (Yellow) Urine Clarity Clear (Clear) Urine pH 6.5 (5.0-9.0) Urine Specific [place] 1.007 (1.001-1.035) Urine Protein Negative (Negative) Urine Ketones Negative (Negative) Urine Blood Negative /uL (Negative) Urine Nitrite Negative (Negative) Urine Bilirubin Negative (Negative) Urine Urobilinogen Normal mg/dL (Negative) Urine Leukocyte Esterase Negative /uL (Negative) Urine RBC <1 /hpf (0 - 4) Urine Microscopic WBC 1 /HPF (0-5) Urine Squamous Epithelial Cells Few /hpf (<5) Urine Bacteria None seen /hpf (None Seen) Urine Glucose Normal mg/dL (Normal) Labs and/or images reviewed: Labs reviewed by me, Image(s) reviewed by me Assessment/Plan Assessment/Plan 12/26 - 49-year-old female, no past medical history, coming with nausea vomiting dizziness. Possible gastroenteritis, still minimally tolerating p.o.. We will have a test Vaibhav-Hallpike as soon as patient gets a bed. No abdominal pain or tenderness. Patient is intravascular volume depleted 12/27- today noting Vaibhav-Hallpike positive on the right. Patient has BPPV. She was having palpitations yesterday and was put on tele. Today we find that she is on proximal AFib. We will get workup for proximal AFib, start rate control, start anticoagulation. CHADS-VASc is 1. We will get cardiology eval. May not need anticoagulation. 12/28- starting metoprolol today, she continues to have palpitations associated with fast rhythm up to 150s. Abnormal rhythm is atrial tachycardia, cardiology has evaluated and no AFib has found on tele or EKG. No need for Lovenox, we will DC. But she continues having fast rhythms every 10 minutes. They are associated with eating and with ambulation. Echocardiogram has mild left atrial enlargement but no significant findings otherwise, TSH is within normal limits, UDS not resulted. Cardiology recommends outpatient Holter. We will increase metoprolol XL to 50 daily and monitor for improvement in symptoms, likely DC tomorrow and follow up with PCP and Cardiology. Continue Leslie maneuvers b.i.d.. I suspect anxiety has a part to play in the presentation as well. 12/29 - patient continues to have palpitations and heart rate up to 180s as paroxysmal atrial tachycardia. it almost appears like paroxysmal SVT. After morning dose of metoprolol continues to have episodes every 15-20 minutes. We will go up on metoprolol further. We will give 251 time today p.m.. From tomorrow we will start metoprolol XL 50 mg b.i.d.. Goal is to decrease these episodes and have patient follow up outpatient with Cardiology and perhaps EP. If episodes continue despite increased beta-asa we will have to reconsult Cardiology and/or stress test on Wednesday. If metoprolol 50 b.i.d. control symptoms she can follow up outpatient with Cardiology/EP, possible discharge tomorrow if patient symptoms and episodes of tachycardia resolved but tomorrow a.m.. Diagnosis: Paroxysmal atrial tachycardia palpitations, due to above BPPV Intractable nausea and vomiting due to above Intractable dizziness due to above Gastroenteritis, infectious etiology possible, resolved stroke, ruled out - continue IV fluids - CT head normal. no acute findings. - iv antibiotics - for possible GE - stop antibiotics - Continue meclizine p.r.n. - antiemetics - zofran - diet regular - vaibhav hallpike test. Positive on right. Leslie maneuver b.i.d. until symptoms resolve and prn thereafter. - TSH, echo, Cardiology consult, workup for AFib.- echo shows left atrial enlargement mild, no other abnormalities. TSH normal. - metoprolol XL 50 b.i.d. - stop Lovenox full dose Diet regular DVT prophylaxis-ambulating GI prophylaxis tolerating diet, altered minimally Tele start Full code Plan discussed with: Patient My Orders Orders - EKTA BLUE MD Procedure Category Date Status Time Metoprolol Xl PHA 12/29/24 Logged Succinate (Toprol Xl) 15:00 Metoprolol Xl PHA 12/30/24 Logged Succinate (Toprol Xl) 10:00 Metoprolol Xl PHA 12/29/24 Logged Succinate (Toprol Xl) 15:00 Date of Service: Dec 29, 2024 Billing Provider: EKTA BLUE MD Common Visit Codes: [id number] INP/OBS CARE(HIGH) EKTA BLUE MD Dec 29, 2024 15:15
[2024-12-30] VITALS (9 sets, daily range): BP systolic 110–131; BP diastolic 58–74; PULSE 62–71; RESP 16–20; TEMP 97.9–98.4; O2SAT 95–98
[2024-12-30 07:26] LABS: Albumin 4.1 g/dL (3.2-4.8); Alkaline Phosphatase 81 U/L (46-116); Anion Gap 9 (5-15); BUN/Creatinine Ratio 12.7 (10.0-20.0); Bilirubin, Total 0.4 mg/dL (0.2-1.0); Carbon Dioxide 27 mmol/L (20-31); Chloride 106 mmol/L (98-107); Glucose 92 mg/dL (74-106); Potassium 4.1 mmol/L (3.5-5.1); Sodium 142 mmol/L (136-145); Total Protein 7.5 g/dL (5.7-8.2)
[2024-12-30 07:27] LABS: Alanine Aminotransferase 43 U/L (7-40); Aspartate Aminotransferase 48 U/L (13-40); Blood Urea Nitrogen 8 mg/dL (9-23)
[2024-12-30] MEDS: METOPROLOL SUCCINATE XL 50 MG TAB PO SCH (09:25)
[2024-12-30] MEDS ORDERED: METOPROLOL SUCCINATE XL 50 MG TAB PO SCH (10:00)
[2024-12-30] MEDS: METOPROLOL TARTRATE 25 MG TAB PO ONE (12:18)
--- NOTE | 2024-12-30 17:06 | DVHPN2 ---
Subjective still having tachycardia Reviewed: H&P Changes from previous H/P or p: No Changes General: Per HPI Objective Vitals Vital Signs Date Time Temp Pulse Resp B/P (MAP) Pulse Ox O2 Delivery O2 Flow Rate FiO2 12/30/24 13:00 98.2 69 18 110/58 (75) 97 98.2 12/30/24 08:01 Room Air* 0 21 Intake/Output Intake and Output 12/30/24 07:00 Intake Total 1500 ml Balance 1500 ml Intake Oral 1500 ml # Voids 6 General Appearance: Alert, Oriented X3 Lungs: Clear to auscultation Cardiovascular: Regular rate, Normal S2 Abdomen: Normal bowel sounds Medications Current Medications Medications Dose Ordered Sig/Joycelyn Route Start Time Stop Time Status Last Admin Dose Admin Acetaminophen/ Hydrocodone Bitart 1 tab Q4HP PRN PO 12/26/24 08:15 12/27/24 23:30 1 TAB Ondansetron HCl 4 mg Q4HP PRN IV 12/26/24 08:15 12/26/24 14:24 4 MG Docusate Sodium 100 mg BIDPRN PRN PO 12/26/24 08:15 Acetaminophen 650 mg Q6HP PRN PO 12/26/24 08:15 12/30/24 03:43 650 MG Meclizine HCl 25 mg Q6HPRN PRN PO 12/26/24 14:15 12/28/24 14:11 25 MG Enoxaparin Sodium 40 mg DAILY SC 12/28/24 10:00 12/30/24 09:25 40 MG Metoprolol Tartrate 75 mg BID PO 12/30/24 22:00 Laboratory Results Laboratory Tests 12/27/24 05:05 12/30/24 05:35 Chemistry Test 12/30/24 05:35 Albumin 4.1 g/dL (3.2-4.8) Calcium Level 10.0 mg/dL (8.7-10.4) Total Protein 7.5 g/dL (5.7-8.2) LFT Test 12/30/24 05:35 Alanine Aminotransferase (ALT) 43 U/L (7-40) H Alkaline Phosphatase 81 U/L (46-116) Aspartate Amino Transferase (AST) 48 U/L (13-40) H Total Bilirubin 0.4 mg/dL (0.2-1.0) Urinalysis Test 12/26/24 07:05 Urine Color Colorless (Yellow) Urine Clarity Clear (Clear) Urine pH 6.5 (5.0-9.0) Urine Specific [place] 1.007 (1.001-1.035) Urine Protein Negative (Negative) Urine Ketones Negative (Negative) Urine Blood Negative /uL (Negative) Urine Nitrite Negative (Negative) Urine Bilirubin Negative (Negative) Urine Urobilinogen Normal mg/dL (Negative) Urine Leukocyte Esterase Negative /uL (Negative) Urine RBC <1 /hpf (0 - 4) Urine Microscopic WBC 1 /HPF (0-5) Urine Squamous Epithelial Cells Few /hpf (<5) Urine Bacteria None seen /hpf (None Seen) Urine Glucose Normal mg/dL (Normal) Assessment/Plan Assessment/Plan 12/26 - 49-year-old female, no past medical history, coming with nausea vomiting dizziness. Possible gastroenteritis, still minimally tolerating p.o.. We will have a test [place]-Hallpike as soon as patient gets a bed. No abdominal pain or tenderness. Patient is intravascular volume depleted 12/27- today noting [place]-Hallpike positive on the right. Patient has BPPV. She was having palpitations yesterday and was put on tele. Today we find that she is on proximal AFib. We will get workup for proximal AFib, start rate control, start anticoagulation. CHADS-VASc is 1. We will get cardiology eval. May not need anticoagulation. 12/28- starting metoprolol today, she continues to have palpitations associated with fast rhythm up to 150s. Abnormal rhythm is atrial tachycardia, cardiology has evaluated and no AFib has found on tele or EKG. No need for Lovenox, we will DC. But she continues having fast rhythms every 10 minutes. They are associated with eating and with ambulation. Echocardiogram has mild left atrial enlargement but no significant findings otherwise, TSH is within normal limits, UDS not resulted. Cardiology recommends outpatient Holter. We will increase metoprolol XL to 50 daily and monitor for improvement in symptoms, likely DC tomorrow and follow up with PCP and Cardiology. Continue Leslie maneuvers b.i.d.. I suspect anxiety has a part to play in the presentation as well. 12/29 - patient continues to have palpitations and heart rate up to 180s as paroxysmal atrial tachycardia. it almost appears like paroxysmal SVT. After morning dose of metoprolol continues to have episodes every 15-20 minutes. We will go up on metoprolol further. We will give 251 time today p.m.. From tomorrow we will start metoprolol XL 50 mg b.i.d.. Goal is to decrease these episodes and have patient follow up outpatient with Cardiology and perhaps EP. If episodes continue despite increased beta-asa we will have to reconsult Cardiology and/or stress test on Wednesday. If metoprolol 50 b.i.d. control symptoms she can follow up outpatient with Cardiology/EP, possible discharge tomorrow if patient symptoms and episodes of tachycardia resolved but tomorrow a.m.. 12/30 still tachycardia and increased dose of metoprolol 75mg BID, stress test ordered Diagnosis: Paroxysmal atrial tachycardia palpitations, due to above BPPV Intractable nausea and vomiting due to above Intractable dizziness due to above Gastroenteritis, infectious etiology possible, resolved stroke, ruled out - continue IV fluids - CT head normal. no acute findings. - iv antibiotics - for possible GE - stop antibiotics - Continue meclizine p.r.n. - antiemetics - zofran - diet regular - vaibhav hallpike test. Positive on right. Leslie maneuver b.i.d. until symptoms resolve and prn thereafter. - TSH, echo, Cardiology consult, workup for AFib.- echo shows left atrial enlargement mild, no other abnormalities. TSH normal. - metoprolol XL 50 b.i.d. - stop Lovenox full dose Diet regular DVT prophylaxis-ambulating GI prophylaxis tolerating diet, altered minimally Tele start Full code Plan discussed with: Patient My Orders Orders - ALIREZA KOROMA MD Procedure Category Date Status Time Metoprolol Tartrate PHA 12/30/24 In Process Tablet (Lopressor Ta 22:00 Cardiolite Multiple NM 12/30/24 Logged 15:15 Date of Service: Dec 30, 2024 Billing Provider: ALIREZA KOROMA MD Common Visit Codes: [id number] INP/OBS CARE(HIGH) ALIREZA KOROMA MD Dec 30, 2024 17:06
[2024-12-30] MEDS: METOPROLOL TARTRATE 25 MG TAB PO SCH (22:00)
[2024-12-31] VITALS (10 sets, daily range): BP systolic 97–137; BP diastolic 46–70; PULSE 53–100; RESP 16–20; TEMP 97.4–98.2; O2SAT 96–100
[2024-12-31] MEDS ORDERED: HYDROmorphone HCL 2 MG/ML VL/or syr ONE (08:02)
[2024-12-31 13:24] LABS: Basophils # (auto) 0 10 ^3/uL (0-0.2); Basophils % (auto) 0.5 % (0.0-2.0); Eosinophils # (auto) 0.1 10 ^3/uL (0-0.8); Hemoglobin 13.9 g/dL (12.2-16.2); Lymphocytes # (auto) 1.4 10 ^3/uL (0.4-5.4)
[2024-12-31 13:26] LABS: Eosinophils % (auto) 1.1 % (0.0-7.0); Hematocrit 40.8 % (36.0-46.0); Lymphocytes % (auto) 17.3 % (10.0-50.0); Mean Corpuscular Hemoglobin 27.4 pg (28.0-32.0); Mean Corpuscular Volume 80.4 fL (80.0-100.0); Monocytes # (auto) 0.5 10 ^3/uL (0-1.3); Neutrophils % (auto) 75.1 % (37.0-80.0); Platelet Count (auto) 222 10^3/uL (140-450); Red Blood Cells 5.07 10^6/uL (4.0-5.20); Red Cell Distribution Width 14.3 % (11.8-14.3)
[2024-12-31 13:32] LABS: Anion Gap 9 (5-15); Carbon Dioxide 27 mmol/L (20-31); Chloride 106 mmol/L (98-107); Potassium 3.8 mmol/L (3.5-5.1); Sodium 142 mmol/L (136-145)
[2024-12-31 13:33] LABS: Calcium 10.3 mg/dL (8.7-10.4)
[2024-12-31 13:38] LABS: BUN/Creatinine Ratio 12.3 (10.0-20.0); Blood Urea Nitrogen 9 mg/dL (9-23); Glucose 119 mg/dL (74-106)
--- NOTE | 2024-12-31 19:06 | DVHPN2 ---
Subjective still having tachycardia Reviewed: H&P Changes from previous H/P or p: No Changes General: Per HPI Objective Vitals Vital Signs Date Time Temp Pulse Resp B/P (MAP) Pulse Ox O2 Delivery O2 Flow Rate FiO2 12/31/24 17:00 97.9 100 20 137/66 (89) 97 97.9 12/31/24 08:10 Room Air* 0 21 Intake/Output Intake and Output 12/31/24 07:00 Intake Total 900 ml Balance 900 ml Intake Oral 900 ml # Voids 4 # Bowel Movements 1 General Appearance: Alert, Oriented X3 Lungs: Clear to auscultation Cardiovascular: Regular rate, Normal S2 Abdomen: Normal bowel sounds Medications Current Medications Medications Dose Ordered Sig/Joycelyn Route Start Time Stop Time Status Last Admin Dose Admin Acetaminophen/ Hydrocodone Bitart 1 tab Q4HP PRN PO 12/26/24 08:15 12/27/24 23:30 1 TAB Ondansetron HCl 4 mg Q4HP PRN IV 12/26/24 08:15 12/26/24 14:24 4 MG Docusate Sodium 100 mg BIDPRN PRN PO 12/26/24 08:15 Acetaminophen 650 mg Q6HP PRN PO 12/26/24 08:15 12/31/24 10:41 650 MG Meclizine HCl 25 mg Q6HPRN PRN PO 12/26/24 14:15 12/28/24 14:11 25 MG Enoxaparin Sodium 40 mg DAILY SC 12/28/24 10:00 12/31/24 08:17 40 MG Metoprolol Tartrate 75 mg BID PO 12/30/24 22:00 12/31/24 08:18 75 MG Laboratory Results Laboratory Tests 12/31/24 13:08 Chemistry Test 12/31/24 13:08 Calcium Level 10.3 mg/dL (8.7-10.4) Magnesium Level 2.0 mg/dL (1.6-2.6) HgA1c, TSH Test 12/31/24 13:08 Thyroid Stimulating Hormone (TSH) 1.20 uIU/mL (0.55-4.78) Urinalysis Test 12/26/24 07:05 Urine Color Colorless (Yellow) Urine Clarity Clear (Clear) Urine pH 6.5 (5.0-9.0) Urine Specific [place] 1.007 (1.001-1.035) Urine Protein Negative (Negative) Urine Ketones Negative (Negative) Urine Blood Negative /uL (Negative) Urine Nitrite Negative (Negative) Urine Bilirubin Negative (Negative) Urine Urobilinogen Normal mg/dL (Negative) Urine Leukocyte Esterase Negative /uL (Negative) Urine RBC <1 /hpf (0 - 4) Urine Microscopic WBC 1 /HPF (0-5) Urine Squamous Epithelial Cells Few /hpf (<5) Urine Bacteria None seen /hpf (None Seen) Urine Glucose Normal mg/dL (Normal) Assessment/Plan Assessment/Plan 12/26 - 49-year-old female, no past medical history, coming with nausea vomiting dizziness. Possible gastroenteritis, still minimally tolerating p.o.. We will have a test Vaibhav-Hallpike as soon as patient gets a bed. No abdominal pain or tenderness. Patient is intravascular volume depleted 12/27- today noting [place]-Hallpike positive on the right. Patient has BPPV. She was having palpitations yesterday and was put on tele. Today we find that she is on proximal AFib. We will get workup for proximal AFib, start rate control, start anticoagulation. CHADS-VASc is 1. We will get cardiology eval. May not need anticoagulation. 12/28- starting metoprolol today, she continues to have palpitations associated with fast rhythm up to 150s. Abnormal rhythm is atrial tachycardia, cardiology has evaluated and no AFib has found on tele or EKG. No need for Lovenox, we will DC. But she continues having fast rhythms every 10 minutes. They are associated with eating and with ambulation. Echocardiogram has mild left atrial enlargement but no significant findings otherwise, TSH is within normal limits, UDS not resulted. Cardiology recommends outpatient Holter. We will increase metoprolol XL to 50 daily and monitor for improvement in symptoms, likely DC tomorrow and follow up with PCP and Cardiology. Continue Leslie maneuvers b.i.d.. I suspect anxiety has a part to play in the presentation as well. 12/29 - patient continues to have palpitations and heart rate up to 180s as paroxysmal atrial tachycardia. it almost appears like paroxysmal SVT. After morning dose of metoprolol continues to have episodes every 15-20 minutes. We will go up on metoprolol further. We will give 251 time today p.m.. From tomorrow we will start metoprolol XL 50 mg b.i.d.. Goal is to decrease these episodes and have patient follow up outpatient with Cardiology and perhaps EP. If episodes continue despite increased beta-asa we will have to reconsult Cardiology and/or stress test on Wednesday. If metoprolol 50 b.i.d. control symptoms she can follow up outpatient with Cardiology/EP, possible discharge tomorrow if patient symptoms and episodes of tachycardia resolved but tomorrow a.m.. 12/30 still tachycardia and increased dose of metoprolol 75mg BID, stress test ordered 12/31 still having episodes of SVT non sustained, last night did not get metoprolol dose, stress test ordered, pending cardiology reconsult Diagnosis: Paroxysmal atrial tachycardia palpitations, due to above BPPV Intractable nausea and vomiting due to above Intractable dizziness due to above Gastroenteritis, infectious etiology possible, resolved stroke, ruled out - continue IV fluids - CT head normal. no acute findings. - iv antibiotics - for possible GE - stop antibiotics - Continue meclizine p.r.n. - antiemetics - zofran - diet regular - vaibhav hallpike test. Positive on right. Leslie maneuver b.i.d. until symptoms resolve and prn thereafter. - TSH, echo, Cardiology consult, workup for AFib.- echo shows left atrial enlargement mild, no other abnormalities. TSH normal. - metoprolol XL 50 b.i.d. - stop Lovenox full dose Diet regular DVT prophylaxis-ambulating GI prophylaxis tolerating diet, altered minimally Tele start Full code Plan discussed with: Patient Date of Service: Dec 31, 2024 Billing Provider: ALIREZA KOROMA MD Common Visit Codes: [id number] INP/OBS CARE(HIGH) ALIREZA KOROMA MD Dec 31, 2024 19:06
[2025-01-01] VITALS (8 sets, daily range): BP systolic 100–142; BP diastolic 49–69; PULSE 68–103; RESP 18; TEMP 97.4–98.2; O2SAT 93–100
--- NOTE | 2025-01-01 09:32 | ECG ---
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
--- NOTE | 2025-01-01 09:32 | ECG ---
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
[2025-01-01] MEDS: REGADENOSON 0.4 MG/5 ML SYRG IV ONE ×2 (11:49→11:58)
--- NOTE | 2025-01-01 14:21 | DVHSR ---
APPROVED REPORT Exam: Nuclear Stress Test Indication: TACYCARDIA Stress Tech: Drea Wasserman Ht: 5 ft 8 in Wt: 251 lbs BSA: 2.25 m2 BMI: 38.16 Medical History Medical History: BPPV, EF 55%, LA ENLARGEMENT Allergies: No known drug allergies Stress Test Details Stress Test: Pharmacologic stress testing performed using 0.4 mg of regadenoson per 5 mL given IV ov er 10 seconds. Reason for pharmacologic stress test: TACYCARDIA. HR Resting HR: 137 bpmMax Heart Rate (APMHR): 173.625599 bpm Max HR Achieved: 171 bpmTarget HR (85% APMHR): 147.451926 bpm % of APMHR: 98.84 Recovery HR: 104 bpm BP Resting BP: 133/68 mmHg Recovery BP: 113/67 mmHg ECG Resting ECG: SEE BASELINE EKG Clinical Reason for Termination: Completed protocol Nurse Comments Received patient from Nuclear Medicine. Patient is A&O x4 and on RA. FOR VS please refer back to st ress test assessment documentation. Patient is connected to quality assurance monitor final. See cardio-neuro proce dural notes for addtional details. PIV flushes well. Reviewed POC and patient verbalizes understand ing and consents to test. Lexiscan stress test performed per protocol. mobile service rv technician administered the Cardiolite. Pat ient tolerated well and vitals returned to baseline. Transferred to Nuclear Medicine via wheelchair with tech in stable condition. Stress ECG Conclusion lvef 60% normal perfusion scan NM EXAM: Myocardial Perfusion REST/STRESS Imaging Protocol: Rest Tc-99m/Stress Tc-99m 1 day Resting Data Rest SPECT myocardial perfusion imaging was performed in supine position 60 minutes following the int ravenous injection of 10.0 mCi of Tc-99m Sestamibi. Time of rest injection: 10:01 Date: 01/01/2025 Time of rest imagin:01 Date: 01/01/2025 Administration Route: IV Administration Site: Right Arm Pharmacologic Stress Pharmacologic stress test was performed by injecting Regadenoson 0.4 mg IV push followed by the intra venous injection of 32.7 mCi of Tc-99m Sestamibi. Time of stress injection: 11:45 Date: 01/01/2025 Time of stress imagin:45 Date: 01/01/2025 Administration Route: IV Administration Site: Right Arm Gated Stress SPECT was performed 60 minutes after stress injection. The images were gated to evaluate regional wall motion and calculate left ventricular ejection fracti on. Stress only was performed in the Supine position. Nuclear Conclusion Nuclear Findings: negative for ischemia lvef 60% normal perfusion scan
--- NOTE | 2025-01-01 17:37 | DVHPN2 ---
Subjective still having tachycardia Reviewed: H&P Changes from previous H/P or p: No Changes General: Per HPI Objective Vitals Vital Signs Date Time Temp Pulse Resp B/P (MAP) Pulse Ox O2 Delivery O2 Flow Rate FiO2 01/01/25 13:00 98.2 79 18 110/61 (77) 100 98.2 01/01/25 08:00 Room Air* 0 21 Intake/Output Intake and Output 01/01/25 07:00 Intake Total 950 ml Balance 950 ml Intake Oral 950 ml # Voids 3 General Appearance: Alert, Oriented X3 Lungs: Clear to auscultation Cardiovascular: Regular rate, Normal S2 Abdomen: Normal bowel sounds Medications Current Medications Medications Dose Ordered Sig/Joycelyn Route Start Time Stop Time Status Last Admin Dose Admin Acetaminophen/ Hydrocodone Bitart 1 tab Q4HP PRN PO 12/26/24 08:15 12/27/24 23:30 1 TAB Ondansetron HCl 4 mg Q4HP PRN IV 12/26/24 08:15 12/26/24 14:24 4 MG Docusate Sodium 100 mg BIDPRN PRN PO 12/26/24 08:15 Acetaminophen 650 mg Q6HP PRN PO 12/26/24 08:15 12/31/24 23:55 650 MG Meclizine HCl 25 mg Q6HPRN PRN PO 12/26/24 14:15 12/28/24 14:11 25 MG Enoxaparin Sodium 40 mg DAILY SC 12/28/24 10:00 12/31/24 08:17 40 MG Metoprolol Tartrate 75 mg BID PO 12/30/24 22:00 12/31/24 08:18 75 MG Laboratory Results Laboratory Tests 12/31/24 13:08 Urinalysis Test 12/26/24 07:05 Urine Color Colorless (Yellow) Urine Clarity Clear (Clear) Urine pH 6.5 (5.0-9.0) Urine Specific [place] 1.007 (1.001-1.035) Urine Protein Negative (Negative) Urine Ketones Negative (Negative) Urine Blood Negative /uL (Negative) Urine Nitrite Negative (Negative) Urine Bilirubin Negative (Negative) Urine Urobilinogen Normal mg/dL (Negative) Urine Leukocyte Esterase Negative /uL (Negative) Urine RBC <1 /hpf (0 - 4) Urine Microscopic WBC 1 /HPF (0-5) Urine Squamous Epithelial Cells Few /hpf (<5) Urine Bacteria None seen /hpf (None Seen) Urine Glucose Normal mg/dL (Normal) Assessment/Plan Assessment/Plan 12/26 - 49-year-old female, no past medical history, coming with nausea vomiting dizziness. Possible gastroenteritis, still minimally tolerating p.o.. We will have a test [place]-Hallpike as soon as patient gets a bed. No abdominal pain or tenderness. Patient is intravascular volume depleted 12/27- today noting Vaibhav-Hallpike positive on the right. Patient has BPPV. She was having palpitations yesterday and was put on tele. Today we find that she is on proximal AFib. We will get workup for proximal AFib, start rate control, start anticoagulation. CHADS-VASc is 1. We will get cardiology eval. May not need anticoagulation. 12/28- starting metoprolol today, she continues to have palpitations associated with fast rhythm up to 150s. Abnormal rhythm is atrial tachycardia, cardiology has evaluated and no AFib has found on tele or EKG. No need for Lovenox, we will DC. But she continues having fast rhythms every 10 minutes. They are associated with eating and with ambulation. Echocardiogram has mild left atrial enlargement but no significant findings otherwise, TSH is within normal limits, UDS not resulted. Cardiology recommends outpatient Holter. We will increase metoprolol XL to 50 daily and monitor for improvement in symptoms, likely DC tomorrow and follow up with PCP and Cardiology. Continue Leslie maneuvers b.i.d.. I suspect anxiety has a part to play in the presentation as well. 12/29 - patient continues to have palpitations and heart rate up to 180s as paroxysmal atrial tachycardia. it almost appears like paroxysmal SVT. After morning dose of metoprolol continues to have episodes every 15-20 minutes. We will go up on metoprolol further. We will give 251 time today p.m.. From tomorrow we will start metoprolol XL 50 mg b.i.d.. Goal is to decrease these episodes and have patient follow up outpatient with Cardiology and perhaps EP. If episodes continue despite increased beta-asa we will have to reconsult Cardiology and/or stress test on Wednesday. If metoprolol 50 b.i.d. control symptoms she can follow up outpatient with Cardiology/EP, possible discharge tomorrow if patient symptoms and episodes of tachycardia resolved but tomorrow a.m.. 12/30 still tachycardia and increased dose of metoprolol 75mg BID, stress test ordered 12/31 still having episodes of SVT non sustained, last night did not get metoprolol dose, stress test ordered, pending cardiology reconsult 01/01 Stress test pending, tachycardia improved, I discussed with cardiology over the phone and has multiple PVCs and not SVT will need a loop recorder ss outpatient Diagnosis: Paroxysmal atrial tachycardia palpitations, due to above BPPV Intractable nausea and vomiting due to above Intractable dizziness due to above Gastroenteritis, infectious etiology possible, resolved stroke, ruled out - continue IV fluids - CT head normal. no acute findings. - iv antibiotics - for possible GE - stop antibiotics - Continue meclizine p.r.n. - antiemetics - zofran - diet regular - vaibhav hallpike test. Positive on right. Leslie maneuver b.i.d. until symptoms resolve and prn thereafter. - TSH, echo, Cardiology consult, workup for AFib.- echo shows left atrial enlargement mild, no other abnormalities. TSH normal. - metoprolol XL 50 b.i.d. - stop Lovenox full dose Diet regular DVT prophylaxis-ambulating GI prophylaxis tolerating diet, altered minimally Tele start Full code Plan discussed with: Patient Date of Service: Jan 01, 2025 Billing Provider: ALIREZA KOROMA MD Common Visit Codes: [id number] INP/OBS CARE(HIGH) ALIREZA KOROMA MD Jan 01, 2025 17:36
[2025-01-02 01:00] VITALS: BP 102/62; PULSE 72; RESP 20; TEMP 97.6; O2SAT 98
[2025-01-02 05:00] VITALS: BP 105/59; PULSE 89; RESP 18; TEMP 97.4; O2SAT 95
[2025-01-02 08:00] VITALS: PULSE 81; PULSE 89; RESP 16; O2SAT 100
[2025-01-02 09:00] VITALS: BP 106/51; PULSE 71; RESP 17; TEMP 97.6; O2SAT 97
[2025-01-02 13:00] VITALS: BP 112/74; PULSE 66; RESP 17; TEMP 97.7; O2SAT 98
[2025-01-02] MEDS ORDERED: MET25T PO (13:37)
--- NOTE | 2025-01-02 16:43 | DVHDS2 ---
Discharge Summary Date of Admission Dec 26, 2024 at 08:13 Date of Discharge: Jan 02, 2025 Admitting Diagnosis 12/26 - 49-year-old female, no past medical history, coming with nausea vomiting dizziness. Possible gastroenteritis, still minimally tolerating p.o.. We will have a test Moody-Hallpike as soon as patient gets a bed. No abdominal pain or tenderness. Patient is intravascular volume depleted 12/27- today noting Moody-Hallpike positive on the right. Patient has BPPV. She was having palpitations yesterday and was put on tele. Today we find that she is on proximal AFib. We will get workup for proximal AFib, start rate control, start anticoagulation. CHADS-VASc is 1. We will get cardiology eval. May not need anticoagulation. 12/28- starting metoprolol today, she continues to have palpitations associated with fast rhythm up to 150s. Abnormal rhythm is atrial tachycardia, cardiology has evaluated and no AFib has found on tele or EKG. No need for Lovenox, we will DC. But she continues having fast rhythms every 10 minutes. They are associated with eating and with ambulation. Echocardiogram has mild left atrial enlargement but no significant findings otherwise, TSH is within normal limits, UDS not resulted. Cardiology recommends outpatient Holter. We will increase metoprolol XL to 50 daily and monitor for improvement in symptoms, likely DC tomorrow and follow up with PCP and Cardiology. Continue Leslie maneuvers b.i.d.. I suspect anxiety has a part to play in the presentation as well. 12/29 - patient continues to have palpitations and heart rate up to 180s as paroxysmal atrial tachycardia. it almost appears like paroxysmal SVT. After morning dose of metoprolol continues to have episodes every 15-20 minutes. We will go up on metoprolol further. We will give 251 time today p.m.. From tomorrow we will start metoprolol XL 50 mg b.i.d.. Goal is to decrease these episodes and have patient follow up outpatient with Cardiology and perhaps EP. If episodes continue despite increased beta-asa we will have to reconsult Cardiology and/or stress test on Wednesday. If metoprolol 50 b.i.d. control symptoms she can follow up outpatient with Cardiology/EP, possible discharge tomorrow if patient symptoms and episodes of tachycardia resolved but tomorrow a.m.. 12/30 still tachycardia and increased dose of metoprolol 75mg BID, stress test ordered 12/31 still having episodes of SVT non sustained, last night did not get metoprolol dose, stress test ordered, pending cardiology reconsult 01/01 Stress test pending, tachycardia improved, I discussed with cardiology over the phone and has multiple PVCs and not SVT will need a loop recorder ss outpatient Labs/Diagnostic Data: Laboratory Results Test 01/01/25 09:01 12/31/24 13:08 12/30/24 05:35 12/27/24 18:10 Beta HCG, Quantitative 2.0 mIU/mL (1.5-4.2) White Blood Count 8.0 10^3/uL (4.4-10.8) Red Blood Count 5.07 10^6/uL (4.0-5.20) Hemoglobin 13.9 g/dL (12.2-16.2) Hematocrit 40.8 % (36.0-46.0) Mean Corpuscular Volume 80.4 fL (80.0-100.0) Mean Corpuscular Hemoglobin 27.4 pg (28.0-32.0) Mean Corpuscular Hemoglobin Concent 34.0 g/dL (32.0-36.0) Red Cell Distribution Width 14.3 % (11.8-14.3) Platelet Count 222 10^3/uL (140-450) Mean Platelet Volume 9.7 fL (6.9-10.8) Neutrophils (%) (Auto) 75.1 % (37.0-80.0) Lymphocytes (%) (Auto) 17.3 % (10.0-50.0) Monocytes (%) (Auto) 6.0 % (0.0-12.0) Eosinophils (%) (Auto) 1.1 % (0.0-7.0) Basophils (%) (Auto) 0.5 % (0.0-2.0) Neutrophils # (Auto) 6.0 10 ^3/uL (1.6-8.6) Lymphocytes # (Auto) 1.4 10 ^3/uL (0.4-5.4) Monocytes # (Auto) 0.5 10 ^3/uL (0-1.3) Eosinophils # (Auto) 0.1 10 ^3/uL (0-0.8) Basophils # (Auto) 0 10 ^3/uL (0-0.2) Nucleated Red Blood Cells 0.0 % Sodium Level 142 mmol/L (136-145) Potassium Level 3.8 mmol/L (3.5-5.1) Chloride Level 106 mmol/L (98-107) Carbon Dioxide Level 27 mmol/L (20-31) Anion Gap 9 (5-15) Blood Urea Nitrogen 9 mg/dL (9-23) Creatinine 0.73 mg/dL (0.550-1.02) Glomerular Filtration Rate Calc 102 mL/min (>90) BUN/Creatinine Ratio 12.3 (10.0-20.0) Serum Glucose 119 mg/dL (74-106) Calcium Level 10.3 mg/dL (8.7-10.4) Magnesium Level 2.0 mg/dL (1.6-2.6) Thyroid Stimulating Hormone (TSH) 1.20 uIU/mL (0.55-4.78) Total Bilirubin 0.4 mg/dL (0.2-1.0) Aspartate Amino Transferase (AST) 48 U/L (13-40) Alanine Aminotransferase (ALT) 43 U/L (7-40) Alkaline Phosphatase 81 U/L (46-116) Total Protein 7.5 g/dL (5.7-8.2) Albumin 4.1 g/dL (3.2-4.8) Urine Opiates Screen Neg (NEGATIVE) Urine Fentanyl Screen Neg (NEGATIVE) Urine Barbiturates Screen Neg (NEGATIVE) Urine Phencyclidine Screen Neg (NEGATIVE) Urine Amphetamines Screen Neg (NEGATIVE) Urine Benzodiazepines Screen Neg (NEGATIVE) Urine Cocaine Screen Neg (NEGATIVE) Urine Cannabinoids Screen Neg (NEGATIVE) Test 12/27/24 05:05 12/26/24 07:05 12/26/24 03:25 Free Thyroxine (T4) Calculated 1.07 ng/dL (0.89-1.76) Urine Color Colorless (Yellow) Urine Clarity Clear (Clear) Urine pH 6.5 (5.0-9.0) Urine Specific [place] 1.007 (1.001-1.035) Urine Protein Negative (Negative) Urine Ketones Negative (Negative) Urine Blood Negative /uL (Negative) Urine Nitrite Negative (Negative) Urine Bilirubin Negative (Negative) Urine Urobilinogen Normal mg/dL (Negative) Urine Leukocyte Esterase Negative /uL (Negative) Urine RBC <1 /hpf (0 - 4) Urine Microscopic WBC 1 /HPF (0-5) Urine Squamous Epithelial Cells Few /hpf (<5) Urine Bacteria None seen /hpf (None Seen) Urine Glucose Normal mg/dL (Normal) Troponin I High Sensitivity < 3 ng/L (</=34) Other Laboratory Tests 12/31/24 13:08 Brief Hx & Hospital Course: 12/26 - 49-year-old female, no past medical history, coming with nausea vomiting dizziness. Possible gastroenteritis, still minimally tolerating p.o.. We will have a test Azeb-Hallpike as soon as patient gets a bed. No abdominal pain or tenderness. Patient is intravascular volume depleted 12/27- today noting Moody-Hallpike positive on the right. Patient has BPPV. She was having palpitations yesterday and was put on tele. Today we find that she is on proximal AFib. We will get workup for proximal AFib, start rate control, start anticoagulation. CHADS-VASc is 1. We will get cardiology eval. May not need anticoagulation. 12/28- starting metoprolol today, she continues to have palpitations associated with fast rhythm up to 150s. Abnormal rhythm is atrial tachycardia, cardiology has evaluated and no AFib has found on tele or EKG. No need for Lovenox, we will DC. But she continues having fast rhythms every 10 minutes. They are associated with eating and with ambulation. Echocardiogram has mild left atrial enlargement but no significant findings otherwise, TSH is within normal limits, UDS not resulted. Cardiology recommends outpatient Holter. We will increase metoprolol XL to 50 daily and monitor for improvement in symptoms, likely DC tomorrow and follow up with PCP and Cardiology. Continue Leslie maneuvers b.i.d.. I suspect anxiety has a part to play in the presentation as well. 12/29 - patient continues to have palpitations and heart rate up to 180s as paroxysmal atrial tachycardia. it almost appears like paroxysmal SVT. After morning dose of metoprolol continues to have episodes every 15-20 minutes. We will go up on metoprolol further. We will give 251 time today p.m.. From tomorrow we will start metoprolol XL 50 mg b.i.d.. Goal is to decrease these episodes and have patient follow up outpatient with Cardiology and perhaps EP. If episodes continue despite increased beta-asa we will have to reconsult Cardiology and/or stress test on Wednesday. If metoprolol 50 b.i.d. control symptoms she can follow up outpatient with Cardiology/EP, possible discharge tomorrow if patient symptoms and episodes of tachycardia resolved but tomorrow a.m.. 12/30 still tachycardia and increased dose of metoprolol 75mg BID, stress test ordered 12/31 still having episodes of SVT non sustained, last night did not get metoprolol dose, stress test ordered, pending cardiology reconsult 01/01 Stress test pending, tachycardia improved, I discussed with cardiology over the phone and has multiple PVCs and not SVT will need a loop recorder ss outpatient Condition at Discharge: Good Final Diagnosis/Problems List Paroxysmal atrial tachycardia palpitations, due to above BPPV Intractable nausea and vomiting due to above Intractable dizziness due to above Gastroenteritis, infectious etiology possible, resolved stroke, ruled out Discharge Disposition: Home Discharge Instruct/Medications Diet: Regular Activity: No Restrictions, As Tolerated Follow Up/Referral: PCP in 7 days Medications: metoprolol Discharge Statement: "Patient was advised to return to the ER or call 911 if any headaches, dizziness, shortness of breath, chest pain, abdominal pain, bleeding, fevers, or worsening of medical condition. Patient was counseled about treatment plan, medications, possible side effects, patientverbalized understanding. All questions were answered to the best of my ability. This discharge took greater then 30 minutes in planning, reviewing documentation, counseling the patient, and discussing with other team members." ASSESSMENT ASSESSMENT Assessment atrial tachycardia Date of Service: Jan 02, 2025 Billing Provider: ALIREZA KOROMA MD Common Visit Codes: [id number] DISCH DAY >30min ALIREZA KOROMA MD Jan 02, 2025 16:43
== END 2025-01-02 16:45 | disposition home or self-care (01) | DRG 392 ==
LOC: EDBD 02:48 → ER 02:53 → OVERFLOW 08:13 → TELE-EAST 20:50
PROVIDERS: ADMIT Hospitalist; ATTEND Hospitalist
DX: A09 Infectious gastroenteritis and colitis, unspecified (principal); I47.19 Other supraventricular tachycardia; H81.11 Benign paroxysmal vertigo, right ear; E86.0 Dehydration; I48.0 Paroxysmal atrial fibrillation; G90.89 Other disorders of autonomic nervous system; F15.10 Other stimulant abuse, uncomplicated; I51.7 Cardiomegaly; E66.9 Obesity, unspecified; Z98.891 History of uterine scar from previous surgery; Z79.899 Other long term (current) drug therapy; Z68.38 Body mass index [BMI] 38.0-38.9, adult
CPT/HCPCS: 36415; 70450; 71045; 78452; 80048; 80053; 80307; 81001; 83735; 84439; 84443; 84484; 84702; 85025; 93005; 93017; 93306; G0378; J2405